=== PATIENT | female | born 1940 | race Caucasian/White ===

== ENCOUNTER 2017-01-02 00:45 | Inpatient (IN) | payer MEDICARE ==
[~2017-01-02] VITALS: Ht 149.9 cm; Wt 61.4 kg
[~2017-01-02 00:45] MED LIST: ASCO10002 PO; ASPI-482 PO; CALC-30 PO; CLOP75TA PO; CRESTOR20 MG PO; FAMO40TA4 PO; FENO134C PO; LORA10TA68 PO; METH500T5 PO; METO50TA2 PO; MULT-245 PO; NITR0.4T22 SL; NITR1PAT9 TD; OMEP40CA5 PO; [UNRECOGNIZED DRUG - CODE] DT
[2017-01-02] MEDS ORDERED: IV NORMAL SALINE 1000ML BAG 1,000 ML IV ONE (02:00)
[2017-01-02] MEDS ORDERED: ONDANSETRON PF 4 MG/2 ML VIAL. IV ONE (02:00)
[2017-01-02 02:06] LABS: BASO % 0 % (0-3); EOS % 0 % (0-3); HEMATOCRIT 37.8 % (36.0-47.0); HEMOGLOBIN 12.1 g/dL (12.0-15.5); LYMPH # 0.4 x10^3/uL (1.0-4.8); LYMPH % 3 % (24-48); MEAN CORPUSCULAR HEMOGLOBIN 27 pg (25-35); MEAN CORPUSCULAR HGB CONC 32 g/dL (31-37); MEAN CORPUSCULAR VOLUME 86 fL (79-100); MONO % 2 % (0-9); NEUT % 95 % (31-73); PLATELET COUNT 253 x10^3/uL (140-400); RED BLOOD COUNT 4.42 x10^6/uL (3.50-5.40); RED CELL DISTRIBUTION WIDTH 16.6 % (11.5-14.5); WHITE BLOOD COUNT 15.3 x10^3/uL (4.0-11.0)
[2017-01-02 02:21] LABS: BILIRUBIN,URINE NEGATIVE (NEG); GLUCOSE,URINE NEGATIVE (NEG); NITRITE,URINE NEGATIVE (NEG); PH,URINE 6.5; PROTEIN,URINE NEGATIVE (NEG-TRACE); UROBILINOGEN,URINE 0.2 mg/dL (0.2 mg/dL)
[2017-01-02 02:29] LABS: BACTERIA,URINE 0 /HPF (0-FEW); RBC,URINE OCC /HPF (0-2); WBC,URINE 0 /HPF (0-4)
[2017-01-02 02:30] LABS: SQUAMOUS EPITHELIAL CELL,UR OCC /LPF
[2017-01-02 02:32] LABS: CALCIUM 9.1 mg/dL (8.5-10.1); GFR 54.2; POTASSIUM 4.4 mmol/L (3.5-5.1)
[2017-01-02 02:38] LABS: ALBUMIN 3.7 g/dL (3.4-5.0); TOTAL BILIRUBIN 0.5 mg/dL (0.2-1.0); TOTAL PROTEIN 7.4 g/dL (6.4-8.2)
[2017-01-02 03:27] LABS: % BASOS 1 % (0-3); % EOS 1 % (0-5); PLT ESTIMATE ADEQUATE (ADEQUATE); TOXIC VACUOLATION SLIGHT
[2017-01-02] MEDS ORDERED: ACETAMINOPHEN 325 MG TABLET. PO ONE (03:30)
[2017-01-02] MEDS ORDERED: ONDANSETRON PF 4 MG/2 ML VIAL. IV PRN ×2 (04:45→14:15)
[2017-01-02] MEDS ORDERED: ACETAMINOPHEN 325 MG TABLET. PO PRN ×2 (04:45→14:15)
[2017-01-02 05:41] VITALS: BP 137/77
--- NOTE | 2017-01-02 05:47 | PHYS DOC ---
Past Medical History Past Medical History: CAD, GERD, Hypertension, Other Additional Past Medical Histor: raynauds Past Surgical History: Cholecystectomy, Coronary Bypass Surgery, Other Additional Past Surgical Histo: colonoscopy Alcohol Use: None Drug Use: None Adult General Chief Complaint Chief Complaint: TREMORS HPI HPI Patient is a 76 year old [f__sex] who presents with [] Review of Systems Review of Systems Constitutional: Denies fever or chills [] Eyes: Denies change in visual acuity, redness, or eye pain [] HENT: Denies nasal congestion or sore throat [] Respiratory: Denies cough or shortness of breath [] Cardiovascular: No additional information not addressed in HPI [] GI: Denies abdominal pain, nausea, vomiting, bloody stools or diarrhea [] : Denies dysuria or hematuria [] Musculoskeletal: Denies back pain or joint pain [] Integument: Denies rash or skin lesions [] Neurologic: Denies headache, focal weakness or sensory changes [] Endocrine: Denies polyuria or polydipsia [] Current Medications Current Medications Current Medications Medications (Trade) Dose Ordered Sig/Blake Start Time Stop Time Status Last Admin Dose Admin Acetaminophen (Tylenol) 650 mg 1X ONCE 01/02/17 03:30 01/02/17 03:31 DC 01/02/17 03:34 650 MG Ceftriaxone Sodium 50 ml @ 100 mls/hr 1X ONCE 01/02/17 03:30 01/02/17 03:59 DC 01/02/17 03:33 100 MLS/HR Ondansetron HCl (Zofran) 4 mg 1X ONCE 01/02/17 02:00 01/02/17 02:01 DC 01/02/17 02:11 4 MG Sodium Chloride 1,000 ml @ 1,000 mls/hr 1X ONCE 01/02/17 02:00 01/02/17 02:59 DC 01/02/17 02:11 1,000 MLS/HR Allergies Allergies Allergies Coded Allergies Type Severity Reaction Last Updated Verified Sulfa (Sulfonamide Antibiotics) Allergy Intermediate intolerance 03/27/15 Yes ciprofloxacin Allergy Intermediate rash 12/08/14 Yes naproxen Allergy Intermediate 12/08/14 Yes polyethylene glycol Allergy Intermediate 03/27/15 No propofol Allergy Intermediate 03/27/15 No propoxyphene Allergy Intermediate 12/08/14 Yes sodium Allergy Intermediate 03/27/15 No sodium chloride Allergy Intermediate 03/27/15 No Physical Exam Physical Exam Constitutional: Well developed, well nourished, no acute distress, non-toxic appearance. [] HENT: Normocephalic, atraumatic, bilateral external ears normal, oropharynx moist, no oral exudates, nose normal. [] Eyes: PERRLA, EOMI, conjunctiva normal, no discharge. [] Neck: Normal range of motion, no tenderness, supple, no stridor. [] Cardiovascular:Heart rate regular rhythm, no murmur [] Lungs & Thorax: Bilateral breath sounds clear to auscultation [] Abdomen: Bowel sounds normal, soft, no tenderness, no masses, no pulsatile masses. [] Skin: Warm, dry, no erythema, no rash. [] Back: No tenderness, no CVA tenderness. [] Extremities: No tenderness, no cyanosis, no clubbing, ROM intact, no edema. [] Neurologic: Alert and oriented X 3, normal motor function, normal sensory function, no focal deficits noted. [] Psychologic: Affect normal, judgement normal, mood normal. [] Current Patient Data Vital Signs Vital Signs Date Time Temp Pulse Resp B/P (MAP) Pulse Ox O2 Delivery O2 Flow Rate FiO2 01/02/17 04:00 82 120/58 (78) 94 Room Air 01/02/17 01:36 99.7 20 99.7 Lab Values Laboratory Tests Test 01/02/17 01:34 01/02/17 02:11 White Blood Count 15.3 x10^3/uL (4.0-11.0) H Red Blood Count 4.42 x10^6/uL (3.50-5.40) Hemoglobin 12.1 g/dL (12.0-15.5) Hematocrit 37.8 % (36.0-47.0) Mean Corpuscular Volume 86 fL (79-100) Mean Corpuscular Hemoglobin 27 pg (25-35) Mean Corpuscular Hemoglobin Concent 32 g/dL (31-37) Red Cell Distribution Width 16.6 % (11.5-14.5) H Platelet Count 253 x10^3/uL (140-400) Neutrophils (%) (Auto) 95 % (31-73) H Lymphocytes (%) (Auto) 3 % (24-48) L Monocytes (%) (Auto) 2 % (0-9) Eosinophils (%) (Auto) 0 % (0-3) Basophils (%) (Auto) 0 % (0-3) Neutrophils # (Auto) 14.5 x10^3uL (1.8-7.7) H Lymphocytes # (Auto) 0.4 x10^3/uL (1.0-4.8) L Monocytes # (Auto) 0.3 x10^3/uL (0.0-1.1) Eosinophils # (Auto) 0.0 x10^3/uL (0.0-0.7) Basophils # (Auto) 0.0 x10^3/uL (0.0-0.2) Segmented Neutrophils % 81 % (35-66) H Band Neutrophils % 11 % (0-9) H Lymphocytes % 3 % (24-48) L Monocytes % 3 % (0-10) Eosinophils % 1 % (0-5) Basophils % 1 % (0-3) Toxic Vacuolation Slight Platelet Estimate Adequate (ADEQUATE) Giant Platelets Occ Sodium Level 134 mmol/L (136-145) L Potassium Level 4.4 mmol/L (3.5-5.1) Chloride Level 100 mmol/L (98-107) Carbon Dioxide Level 23 mmol/L (21-32) Anion Gap 11 (6-14) Blood Urea Nitrogen 15 mg/dL (7-20) Creatinine 1.0 mg/dL (0.6-1.0) Estimated GFR (Cockcroft-Gault) 54.2 BUN/Creatinine Ratio 15 (6-20) Glucose Level 87 mg/dL (70-99) Lactic Acid Level 2.6 mmol/L (0.4-2.0) H Calcium Level 9.1 mg/dL (8.5-10.1) Total Bilirubin 0.5 mg/dL (0.2-1.0) Aspartate Amino Transferase (AST) 90 U/L (15-37) H Alanine Aminotransferase (ALT) 36 U/L (14-59) Alkaline Phosphatase 59 U/L (46-116) Total Protein 7.4 g/dL (6.4-8.2) Albumin 3.7 g/dL (3.4-5.0) Albumin/Globulin Ratio 1.0 (1.0-1.7) Urine Collection Type U cath Urine Color Yellow Urine Clarity Clear Urine pH 6.5 Urine Specific [place] 1.015 Urine Protein Negative mg/dL (NEG-TRACE) Urine Glucose (UA) Negative mg/dL (NEG) Urine Ketones (Stick) Negative mg/dL (NEG) Urine Blood Negative (NEG) Urine Nitrite Negative (NEG) Urine Bilirubin Negative (NEG) Urine Urobilinogen Dipstick 0.2 mg/dL (0.2 mg/dL) Urine Leukocyte Esterase Negative (NEG) Urine RBC Occ /HPF (0-2) Urine WBC 0 /HPF (0-4) Urine Squamous Epithelial Cells Occ /LPF Urine Bacteria 0 /HPF (0-FEW) Urine Hyaline Casts Occasional /HPF Urine Mucus Slight /LPF Laboratory Tests 01/02/17 01:34 Laboratory Tests 01/02/17 01:34 EKG EKG [] Radiology/Procedures Radiology/Procedures [] Course & Med Decision Making Course & Med Decision Making Pertinent Labs and Imaging studies reviewed. (See chart for details) [] Dragon Disclaimer Dragon Disclaimer This electronic medical record was generated, in whole or in part, using a voice recognition dictation system. Departure Departure Impression: Primary Impression: SIRS (systemic inflammatory response syndrome) Additional Impressions: Tremor Leukocytosis Disposition: ADMITTED INPATIENT Admitting Physician: Other (reusch) Condition: STABLE Referrals: CHAPIS DICK MD (PCP) Problem Qualifiers Additional Impressions: Leukocytosis Leukocytosis type: bandemia Qualified Codes: D72.825 - Bandemia SANGITA PHOENIX MD Jan 02, 2017 05:47
[2017-01-02] MEDS ORDERED: ALEN70TA3 PO (06:03)
[2017-01-02] MEDS ORDERED: CRESTOR20 MG PO (06:03)
--- NOTE | 2017-01-02 06:35 | ACF ---
Admit Criteria Forms Admit Criteria Forms Admit Criteria Forms SEPSIS and OTHER FEBRILE ILLNESS, W/O FOCAL INFECTION Clinical Indications for Admission to Inpatient Care ( Place 'X' for any and all applicable criteria): Admission is indicated for ANY ONE of the following (1)(2)(3)(4): [ ] I. Bacteremia [ ]II. Suspected or identified specific infection requiring hospitalization (eg, meningitis, endocarditis) [ ]III. Hemodynamic instability [ ]IV. Altered mental status [ ]V. Failure or unavailability of outpatient antimicrobial treatment [ ]. Hypoxemia [ ]VII. Seizures [ ]VIII. High-risk febrile neutropenia [ ]IX. Need for parenteral antibiotic in patient who is likely to abuse vascular access device (eg, injection drug user) [A](7) [ ]X. Temperature greater than 104.9 degrees F (40.5 degrees C) (oral) [X]XI. Inpatient admission required rather than observation care because of ANY ONE of the following: [X]1) Specific infection identified that is too severe for outpatient treatment or observation care trial [ ]2) Metabolic disorder (eg, hypoglycemia, hyperglycemia, metabolic acidosis) that is severe or persistent [ ]3) Temperature greater than 103.1 degrees F (39.5 degrees C) ( oral) that is not responsive to observation care treatment [ ]4) IV fluid to replace significant ongoing (eg, for over 24 hours) losses (> 3 L/m2 per day) [ ]5) Supplemental oxygen or respiratory treatments for over 24 hours that is performable only in acute inpatient setting [ ]6) Parenteral nutrition regimen need that must be implemented on inpatient basis [ ]7) Strict or protective (eg, laminar flow) isolation [ ]8) Other condition, treatment or monitoring requiring inpatient admission Extended stay beyond goal length of stay may be needed for(1)(3) [ ]a) Sepsis or septic shock(22) [ ]b) Positive blood cultures [ ]c) Insufficient oral intake [ ]d) High-risk febrile neutropenia(29)(30) [ ]e) Continued fever and clinical instability [ ]f) Clinically active comorbid illness (e.g,heart failure, renal failure , diabetes) The original [employer] content created by [email or web address] has been revised. The portions of the content which have been revised are identified through the use of italic text or in bold, and [facility] has neither reviewed nor approved the modified material. All other unmodified content is copyright [facility]. Please see references footnoted in the original [facility] edition 2016 ZOHAIB BATISTA Jan 02, 2017 06:35
[2017-01-02 07:00] VITALS: BP 99/38
--- NOTE | 2017-01-02 07:32 | RAD ---
EXAM: Chest one view. HISTORY: Leukocytosis. COMPARISON: 03/27/2015. FINDINGS: A frontal view of the chest is obtained. There are changes of coronary artery bypass grafting. Cholecystectomy clips are noted. There is mild atelectasis or scarring in the bases. There is no pneumothorax or pleural effusion. The heart is not enlarged. There are atherosclerotic calcifications of the aorta. IMPRESSION: 1. No confluent infiltrates.
[2017-01-02 10:30] VITALS: BP_SYST 104; BP_SYST 108; BP_SYST 98; BP_DIAS 24; BP_DIAS 28; BP_DIAS 36
[2017-01-02] MEDS ORDERED: NITROGLYCERIN SUBLINGUAL 0.4 MG BOTTLE OF 25. SL PRN (11:45)
[2017-01-02] MEDS ORDERED: FAMOTIDINE 20 MG TABLET. PO SCH (12:30)
[2017-01-02] MEDS: CETIRIZINE HCL 10 MG TABLET. PO SCH (12:30)
[2017-01-02] MEDS ORDERED: METOPROLOL TART IMMED RELEASE 50 MG TABLET. PO SCH (12:30)
[2017-01-02] MEDS: MULTIVITAMIN with MINERAL TABLET. PO SCH (13:30)
[2017-01-02] MEDS: PANTOPRAZOLE 40 MG TABLET.DR. PO SCH (13:30)
[2017-01-02] MEDS: ASCORBIC ACID 500 MG TABLET PO SCH (13:33)
[2017-01-02] MEDS: FENOFIBRATE,MICRONIZED 134 MG CAPSULE PO SCH (13:33)
--- NOTE | 2017-01-02 14:05 | PDOC1 ---
History and Physical Date of Admission Date of Admission 01/02/17 Identification/Chief Complaint Chief Complaint bl ext tremors Problems: Source Source: Patient History of Present Illness History of Present Illness 76yo F, comes for bl ext tremors. Pt has Raynauds syndrome with bl hands cold , white sometimes. She said she started to feel bl hands, feet mild tremors yesterday, better today. She worried about hyponatremia, then came to ER. Na 134. has chronic urinary frequency. UA clean so far denies fever, chills, sob, cough, N/V. Past Medical History Cardiovascular: CAD GI: GERD Renal/: No pertinent hx Endocrine: No pertinent hx Past Surgical History Past Surgical History: CABG Family History Family History: No Significant Social History Smoke: No ALCOHOL: none Drugs: None Current Problem List Problem List Problems Medical Problems: (1) Leukocytosis Status: Acute (2) SIRS (systemic inflammatory response syndrome) Status: Acute (3) Tremor Status: Acute Current Medications Current Medications Current Medications Medications (Trade) Dose Ordered Sig/Blake Start Time Stop Time Status Last Admin Dose Admin Acetaminophen (Tylenol) 650 mg PRN Q4HRS PRN 01/02/17 04:45 01/03/17 04:44 Ascorbic Acid (Vitamin C) 1,000 mg DAILY 01/02/17 12:30 01/02/17 13:33 1,000 MG Atorvastatin Calcium (Lipitor) 80 mg QHS 01/02/17 21:00 Calcium/Vitamin D (Oscal D 500mg/ 200uts) 1 tab BIDWMEALS 01/02/17 17:00 Ceftriaxone Sodium 50 ml @ 100 mls/hr 1X ONCE 01/02/17 03:30 01/02/17 03:59 DC 01/02/17 03:33 100 MLS/HR Cetirizine HCl (ZyrTEC) 10 mg DAILY 01/02/17 12:30 Famotidine (Pepcid) 20 mg QHS 01/02/17 21:00 Fenofibrate (Lofibra) 134 mg DAILY 01/02/17 12:30 01/02/17 13:33 134 MG Metoprolol Tartrate (Lopressor) 50 mg BID 01/02/17 12:30 Multivitamins (Thera M Plus) 1 tab DAILY 01/02/17 12:30 01/02/17 13:30 1 TAB Nitroglycerin (Nitrostat) 0.4 mg PRN Q5MIN PRN 01/02/17 11:45 Non-Formulary Medication 113 gm HS 01/02/17 21:00 UNV Ondansetron HCl (Zofran) 4 mg PRN Q8HRS PRN 01/02/17 04:45 01/03/17 04:44 Pantoprazole Sodium (Protonix) 40 mg DAILYAC 01/02/17 12:30 01/02/17 13:30 40 MG Sodium Chloride 1,000 ml @ 1,000 mls/hr 1X ONCE 01/02/17 02:00 01/02/17 02:59 DC 01/02/17 02:11 1,000 MLS/HR Allergies Allergies Allergies Coded Allergies Type Severity Reaction Last Updated Verified Sulfa (Sulfonamide Antibiotics) Allergy Intermediate intolerance 03/27/15 Yes ciprofloxacin Allergy Intermediate rash 12/08/14 Yes naproxen Allergy Intermediate 12/08/14 Yes polyethylene glycol Allergy Intermediate 03/27/15 No propofol Allergy Intermediate 03/27/15 No propoxyphene Allergy Intermediate 12/08/14 Yes sodium Allergy Intermediate 03/27/15 No sodium chloride Allergy Intermediate 03/27/15 No ROS Review of System CONSTITUTIONAL: No fever or chills EYES: No recent changes SKIN: No rash or itching CARDIOVASCULAR: No chest pain, syncope, palpitations, or edema RESPIRATORY: No SOB or cough GASTROINTESTINAL: No nausea, vomiting or abdominal pain NEUROLOGICAL: No headaches or weakness ENDOCRINE: No cold or heat intolerance GENITOURINARY: No urgency or frequency of urination MUSCULOSKELETAL: No back pain or joint pain LYMPHATICS: No enlarged lymph nodes PSYCHIATRIC: No anxiety or depression Physical Exam Physical Exam GEN.: No apparent distress. Alert and oriented. HEENT: Head is normocephalic, atraumatic NECK: Supple. LUNGS: Clear to auscultation. HEART: RRR, S1, S2 present. Peripheral pulses intact ABDOMEN: Soft, nontender. Positive bowel sounds. EXTREMITIES: Without any cyanosis. bl fingers very mild tremors NEUROLOGIC: Normal speech, normal tone PSYCHIATRIC: Normal affect, normal mood. SKIN: No ulcerations Vitals Vitals Vital Signs Date Time Temp Pulse Resp B/P (MAP) Pulse Ox O2 Delivery O2 Flow Rate FiO2 01/02/17 12:30 58 98/34 6/12/17 10:30 98.1 18 92 Room Air 98.1 Labs Labs Laboratory Tests Test 01/02/17 01:34 01/02/17 02:11 01/02/17 04:35 White Blood Count 15.3 x10^3/uL (4.0-11.0) Red Blood Count 4.42 x10^6/uL (3.50-5.40) Hemoglobin 12.1 g/dL (12.0-15.5) Hematocrit 37.8 % (36.0-47.0) Mean Corpuscular Volume 86 fL (79-100) Mean Corpuscular Hemoglobin 27 pg (25-35) Mean Corpuscular Hemoglobin Concent 32 g/dL (31-37) Red Cell Distribution Width 16.6 % (11.5-14.5) Platelet Count 253 x10^3/uL (140-400) Neutrophils (%) (Auto) 95 % (31-73) Lymphocytes (%) (Auto) 3 % (24-48) Monocytes (%) (Auto) 2 % (0-9) Eosinophils (%) (Auto) 0 % (0-3) Basophils (%) (Auto) 0 % (0-3) Neutrophils # (Auto) 14.5 x10^3uL (1.8-7.7) Lymphocytes # (Auto) 0.4 x10^3/uL (1.0-4.8) Monocytes # (Auto) 0.3 x10^3/uL (0.0-1.1) Eosinophils # (Auto) 0.0 x10^3/uL (0.0-0.7) Basophils # (Auto) 0.0 x10^3/uL (0.0-0.2) Segmented Neutrophils % 81 % (35-66) Band Neutrophils % 11 % (0-9) Lymphocytes % 3 % (24-48) Monocytes % 3 % (0-10) Eosinophils % 1 % (0-5) Basophils % 1 % (0-3) Toxic Vacuolation Slight Platelet Estimate Adequate (ADEQUATE) Giant Platelets Occ Sodium Level 134 mmol/L (136-145) Potassium Level 4.4 mmol/L (3.5-5.1) Chloride Level 100 mmol/L (98-107) Carbon Dioxide Level 23 mmol/L (21-32) Anion Gap 11 (6-14) Blood Urea Nitrogen 15 mg/dL (7-20) Creatinine 1.0 mg/dL (0.6-1.0) Estimated GFR (Cockcroft-Gault) 54.2 BUN/Creatinine Ratio 15 (6-20) Glucose Level 87 mg/dL (70-99) Lactic Acid Level 2.6 mmol/L (0.4-2.0) 1.8 mmol/L (0.4-2.0) Calcium Level 9.1 mg/dL (8.5-10.1) Total Bilirubin 0.5 mg/dL (0.2-1.0) Aspartate Amino Transf (AST/SGOT) 90 U/L (15-37) Alanine Aminotransferase (ALT/SGPT) 36 U/L (14-59) Alkaline Phosphatase 59 U/L (46-116) Total Protein 7.4 g/dL (6.4-8.2) Albumin 3.7 g/dL (3.4-5.0) Albumin/Globulin Ratio 1.0 (1.0-1.7) Urine Collection Type U cath Urine Color Yellow Urine Clarity Clear Urine pH 6.5 Urine Specific [place] 1.015 Urine Protein Negative mg/dL (NEG-TRACE) Urine Glucose (UA) Negative mg/dL (NEG) Urine Ketones (Stick) Negative mg/dL (NEG) Urine Blood Negative (NEG) Urine Nitrite Negative (NEG) Urine Bilirubin Negative (NEG) Urine Urobilinogen Dipstick 0.2 mg/dL (0.2 mg/dL) Urine Leukocyte Esterase Negative (NEG) Urine RBC Occ /HPF (0-2) Urine WBC 0 /HPF (0-4) Urine Squamous Epithelial Cells Occ /LPF Urine Bacteria 0 /HPF (0-FEW) Urine Hyaline Casts Occasional /HPF Urine Mucus Slight /LPF Laboratory Tests Test 01/02/17 01:34 01/02/17 02:11 01/02/17 04:35 White Blood Count 15.3 x10^3/uL (4.0-11.0) Red Blood Count 4.42 x10^6/uL (3.50-5.40) Hemoglobin 12.1 g/dL (12.0-15.5) Hematocrit 37.8 % (36.0-47.0) Mean Corpuscular Volume 86 fL (79-100) Mean Corpuscular Hemoglobin 27 pg (25-35) Mean Corpuscular Hemoglobin Concent 32 g/dL (31-37) Red Cell Distribution Width 16.6 % (11.5-14.5) Platelet Count 253 x10^3/uL (140-400) Neutrophils (%) (Auto) 95 % (31-73) Lymphocytes (%) (Auto) 3 % (24-48) Monocytes (%) (Auto) 2 % (0-9) Eosinophils (%) (Auto) 0 % (0-3) Basophils (%) (Auto) 0 % (0-3) Neutrophils # (Auto) 14.5 x10^3uL (1.8-7.7) Lymphocytes # (Auto) 0.4 x10^3/uL (1.0-4.8) Monocytes # (Auto) 0.3 x10^3/uL (0.0-1.1) Eosinophils # (Auto) 0.0 x10^3/uL (0.0-0.7) Basophils # (Auto) 0.0 x10^3/uL (0.0-0.2) Segmented Neutrophils % 81 % (35-66) Band Neutrophils % 11 % (0-9) Lymphocytes % 3 % (24-48) Monocytes % 3 % (0-10) Eosinophils % 1 % (0-5) Basophils % 1 % (0-3) Toxic Vacuolation Slight Platelet Estimate Adequate (ADEQUATE) Giant Platelets Occ Sodium Level 134 mmol/L (136-145) Potassium Level 4.4 mmol/L (3.5-5.1) Chloride Level 100 mmol/L (98-107) Carbon Dioxide Level 23 mmol/L (21-32) Anion Gap 11 (6-14) Blood Urea Nitrogen 15 mg/dL (7-20) Creatinine 1.0 mg/dL (0.6-1.0) Estimated GFR (Cockcroft-Gault) 54.2 BUN/Creatinine Ratio 15 (6-20) Glucose Level 87 mg/dL (70-99) Lactic Acid Level 2.6 mmol/L (0.4-2.0) 1.8 mmol/L (0.4-2.0) Calcium Level 9.1 mg/dL (8.5-10.1) Total Bilirubin 0.5 mg/dL (0.2-1.0) Aspartate Amino Transf (AST/SGOT) 90 U/L (15-37) Alanine Aminotransferase (ALT/SGPT) 36 U/L (14-59) Alkaline Phosphatase 59 U/L (46-116) Total Protein 7.4 g/dL (6.4-8.2) Albumin 3.7 g/dL (3.4-5.0) Albumin/Globulin Ratio 1.0 (1.0-1.7) Urine Collection Type U cath Urine Color Yellow Urine Clarity Clear Urine pH 6.5 Urine Specific [place] 1.015 Urine Protein Negative mg/dL (NEG-TRACE) Urine Glucose (UA) Negative mg/dL (NEG) Urine Ketones (Stick) Negative mg/dL (NEG) Urine Blood Negative (NEG) Urine Nitrite Negative (NEG) Urine Bilirubin Negative (NEG) Urine Urobilinogen Dipstick 0.2 mg/dL (0.2 mg/dL) Urine Leukocyte Esterase Negative (NEG) Urine RBC Occ /HPF (0-2) Urine WBC 0 /HPF (0-4) Urine Squamous Epithelial Cells Occ /LPF Urine Bacteria 0 /HPF (0-FEW) Urine Hyaline Casts Occasional /HPF Urine Mucus Slight /LPF VTE Prophylaxis Ordered VTE Prophylaxis Devices: No VTE Pharmacological Prophylaxi: Yes Assessment/Plan Assessment/Plan 1. bl ext tremors, 2/2 essential tremors vs. Raynauds syndrome 2. h/o CAD WITH BYpass sx 3. HTN 4. GERD plan; decrease metoprolol to 25mg bid given low side bp cont supportive care PTOT dvt ppx fu ucx, no abx for now TATY RIVERA MD Jan 02, 2017 14:05
[2017-01-02] MEDS ORDERED: hydrALAZINE 20 MG/ML VIAL. IVP PRN (14:15)
[2017-01-02] MEDS ORDERED: traMADol 50 MG TABLET PO PRN (14:15)
[2017-01-02] MEDS ORDERED: DOCUSATE SODIUM 100 MG CAPSULE. PO PRN (14:15)
[2017-01-02] MEDS ORDERED: MORPHINE SULFATE 2 MG/ML DISP.SYRIN. IV PRN (14:15)
[2017-01-02 15:00] VITALS: BP 106/41
[2017-01-02] MEDS: ENOXAPARIN 40 MG/0.4 ML SYRINGE. SQ SCH (17:03)
[2017-01-02] MEDS: CALCIUM CARB/VIT D3 500/200 TABLET. PO SCH (17:03)
[2017-01-02 19:00] VITALS: BP 100/49
[2017-01-02] MEDS: METOPROLOL TART IMMED RELEASE 25 MG TABLET. PO SCH (20:22)
[2017-01-02] MEDS: ATORVASTATIN CALCIUM 40 MG TABLET. PO SCH (20:28)
[2017-01-02] MEDS: FAMOTIDINE 20 MG TABLET. PO SCH (20:28)
[2017-01-02] MEDS ORDERED: SODIUM FLUORIDE DT SCH (21:00)
[2017-01-02 23:00] VITALS: BP 105/84
[2017-01-03 03:00] VITALS: BP 117/55
[2017-01-03 06:44] LABS: BASO % 1 % (0-3); EOS % 2 % (0-3); HEMATOCRIT 33.3 % (36.0-47.0); HEMOGLOBIN 10.9 g/dL (12.0-15.5); LYMPH # 0.8 x10^3/uL (1.0-4.8); LYMPH % 11 % (24-48); MEAN CORPUSCULAR HEMOGLOBIN 28 pg (25-35); MEAN CORPUSCULAR HGB CONC 33 g/dL (31-37); MEAN CORPUSCULAR VOLUME 86 fL (79-100); MONO % 9 % (0-9); NEUT % 77 % (31-73); PLATELET COUNT 189 x10^3/uL (140-400); RED BLOOD COUNT 3.86 x10^6/uL (3.50-5.40); RED CELL DISTRIBUTION WIDTH 16.9 % (11.5-14.5); WHITE BLOOD COUNT 7.2 x10^3/uL (4.0-11.0)
[2017-01-03 06:48] LABS: CALCIUM 9.1 mg/dL (8.5-10.1); CREATININE 0.8 mg/dL (0.6-1.0); GFR 70.1; POTASSIUM 4.3 mmol/L (3.5-5.1)
[2017-01-03 07:30] VITALS: BP 130/49
[2017-01-03] MEDS ORDERED: METHYLCELLULOSE 500 MG PO SCH (09:00)
[2017-01-03] MEDS ORDERED: NON FORMULARY ITEM (Rosuvastatin Calcium (Crestor) 1 TAB) PO SCH (09:00)
[2017-01-03] MEDS: PANTOPRAZOLE 40 MG TABLET.DR. PO SCH (09:34)
[2017-01-03] MEDS: FENOFIBRATE,MICRONIZED 134 MG CAPSULE PO SCH (09:34)
[2017-01-03] MEDS: CALCIUM CARB/VIT D3 500/200 TABLET. PO SCH ×2 (09:34→16:25)
[2017-01-03] MEDS: METOPROLOL TART IMMED RELEASE 25 MG TABLET. PO SCH ×2 (09:35→19:57)
[2017-01-03] MEDS: MULTIVITAMIN with MINERAL TABLET. PO SCH (09:35)
[2017-01-03] MEDS: ASCORBIC ACID 500 MG TABLET PO SCH (09:36)
[2017-01-03] MEDS: CETIRIZINE HCL 10 MG TABLET. PO SCH (09:36)
[2017-01-03] MEDS ORDERED: PSYL1PAC7 PO (09:42)
[2017-01-03 10:30] VITALS: BP 128/55
[2017-01-03] MEDS: ENOXAPARIN 40 MG/0.4 ML SYRINGE. SQ SCH (13:24)
[2017-01-03 14:30] VITALS: BP 141/54
--- NOTE | 2017-01-03 14:37 | PDOC ---
PROGRESS NOTES Chief Complaint Chief Complaint 1. bl ext tremors, 2/2 essential tremors vs. Raynauds syndrome 2. h/o CAD WITH BYpass sx 3. HTN 4. GERD plan; neuro consult add vitb12 po daily given low side vitb12 decrease metoprolol to 25mg bid given low side bp cont supportive care PTOT dvt ppx fu ucx, no abx for now check vitd, mag, stephany History of Present Illness History of Present Illness feels ok in the am, still bl ext mild tremors, however, later in the afternoon, feels not good T 100 as per nurse Vitals Vitals Vital Signs Date Time Temp Pulse Resp B/P (MAP) Pulse Ox O2 Delivery O2 Flow Rate FiO2 01/03/17 10:30 98.1 64 18 128/55 (79) 94 Room Air 98.1 Physical Exam General: Alert, Oriented X3, Cooperative Heart: Regular rate, Normal S1, Normal S2 Lungs: Clear Abdomen: Normal bowel sounds, Soft, No tenderness Extremities: No clubbing, No cyanosis Skin: No rashes Labs LABS Laboratory Tests Test 01/03/17 05:45 White Blood Count 7.2 x10^3/uL (4.0-11.0) Red Blood Count 3.86 x10^6/uL (3.50-5.40) Hemoglobin 10.9 g/dL (12.0-15.5) Hematocrit 33.3 % (36.0-47.0) Mean Corpuscular Volume 86 fL (79-100) Mean Corpuscular Hemoglobin 28 pg (25-35) Mean Corpuscular Hemoglobin Concent 33 g/dL (31-37) Red Cell Distribution Width 16.9 % (11.5-14.5) Platelet Count 189 x10^3/uL (140-400) Neutrophils (%) (Auto) 77 % (31-73) Lymphocytes (%) (Auto) 11 % (24-48) Monocytes (%) (Auto) 9 % (0-9) Eosinophils (%) (Auto) 2 % (0-3) Basophils (%) (Auto) 1 % (0-3) Neutrophils # (Auto) 5.6 x10^3uL (1.8-7.7) Lymphocytes # (Auto) 0.8 x10^3/uL (1.0-4.8) Monocytes # (Auto) 0.6 x10^3/uL (0.0-1.1) Eosinophils # (Auto) 0.2 x10^3/uL (0.0-0.7) Basophils # (Auto) 0.0 x10^3/uL (0.0-0.2) Sodium Level 137 mmol/L (136-145) Potassium Level 4.3 mmol/L (3.5-5.1) Chloride Level 104 mmol/L (98-107) Carbon Dioxide Level 24 mmol/L (21-32) Anion Gap 9 (6-14) Blood Urea Nitrogen 12 mg/dL (7-20) Creatinine 0.8 mg/dL (0.6-1.0) Estimated GFR (Cockcroft-Gault) 70.1 Glucose Level 96 mg/dL (70-99) Calcium Level 9.1 mg/dL (8.5-10.1) Vitamin B12 Level 363 pg/mL (247-911) Thyroid Stimulating Hormone (TSH) 3.349 uIU/mL (0.358-3.74) Review of Systems Review of Systems no N/V, chills, sob Assessment and Plan Assessmemt and Plan Problems Medical Problems: (1) Leukocytosis Status: Acute (2) SIRS (systemic inflammatory response syndrome) Status: Acute (3) Tremor Status: Acute Problems: Comment Review of Relevant I have reviewed the following items lucero (where applicable) has been applied. Labs Laboratory Tests Test 01/02/17 01:34 01/02/17 02:11 01/02/17 04:35 01/03/17 05:45 White Blood Count 15.3 x10^3/uL (4.0-11.0) 7.2 x10^3/uL (4.0-11.0) Red Blood Count 4.42 x10^6/uL (3.50-5.40) 3.86 x10^6/uL (3.50-5.40) Hemoglobin 12.1 g/dL (12.0-15.5) 10.9 g/dL (12.0-15.5) Hematocrit 37.8 % (36.0-47.0) 33.3 % (36.0-47.0) Mean Corpuscular Volume 86 fL (79-100) 86 fL (79-100) Mean Corpuscular Hemoglobin 27 pg (25-35) 28 pg (25-35) Mean Corpuscular Hemoglobin Concent 32 g/dL (31-37) 33 g/dL (31-37) Red Cell Distribution Width 16.6 % (11.5-14.5) 16.9 % (11.5-14.5) Platelet Count 253 x10^3/uL (140-400) 189 x10^3/uL (140-400) Neutrophils (%) (Auto) 95 % (31-73) 77 % (31-73) Lymphocytes (%) (Auto) 3 % (24-48) 11 % (24-48) Monocytes (%) (Auto) 2 % (0-9) 9 % (0-9) Eosinophils (%) (Auto) 0 % (0-3) 2 % (0-3) Basophils (%) (Auto) 0 % (0-3) 1 % (0-3) Neutrophils # (Auto) 14.5 x10^3uL (1.8-7.7) 5.6 x10^3uL (1.8-7.7) Lymphocytes # (Auto) 0.4 x10^3/uL (1.0-4.8) 0.8 x10^3/uL (1.0-4.8) Monocytes # (Auto) 0.3 x10^3/uL (0.0-1.1) 0.6 x10^3/uL (0.0-1.1) Eosinophils # (Auto) 0.0 x10^3/uL (0.0-0.7) 0.2 x10^3/uL (0.0-0.7) Basophils # (Auto) 0.0 x10^3/uL (0.0-0.2) 0.0 x10^3/uL (0.0-0.2) Segmented Neutrophils % 81 % (35-66) Band Neutrophils % 11 % (0-9) Lymphocytes % 3 % (24-48) Monocytes % 3 % (0-10) Eosinophils % 1 % (0-5) Basophils % 1 % (0-3) Toxic Vacuolation Slight Platelet Estimate Adequate (ADEQUATE) Giant Platelets Occ Sodium Level 134 mmol/L (136-145) 137 mmol/L (136-145) Potassium Level 4.4 mmol/L (3.5-5.1) 4.3 mmol/L (3.5-5.1) Chloride Level 100 mmol/L (98-107) 104 mmol/L (98-107) Carbon Dioxide Level 23 mmol/L (21-32) 24 mmol/L (21-32) Anion Gap 11 (6-14) 9 (6-14) Blood Urea Nitrogen 15 mg/dL (7-20) 12 mg/dL (7-20) Creatinine 1.0 mg/dL (0.6-1.0) 0.8 mg/dL (0.6-1.0) Estimated GFR (Cockcroft-Gault) 54.2 70.1 BUN/Creatinine Ratio 15 (6-20) Glucose Level 87 mg/dL (70-99) 96 mg/dL (70-99) Lactic Acid Level 2.6 mmol/L (0.4-2.0) 1.8 mmol/L (0.4-2.0) Calcium Level 9.1 mg/dL (8.5-10.1) 9.1 mg/dL (8.5-10.1) Total Bilirubin 0.5 mg/dL (0.2-1.0) Aspartate Amino Transf (AST/SGOT) 90 U/L (15-37) Alanine Aminotransferase (ALT/SGPT) 36 U/L (14-59) Alkaline Phosphatase 59 U/L (46-116) Total Protein 7.4 g/dL (6.4-8.2) Albumin 3.7 g/dL (3.4-5.0) Albumin/Globulin Ratio 1.0 (1.0-1.7) Urine Collection Type U cath Urine Color Yellow Urine Clarity Clear Urine pH 6.5 Urine Specific Irwin 1.015 Urine Protein Negative mg/dL (NEG-TRACE) Urine Glucose (UA) Negative mg/dL (NEG) Urine Ketones (Stick) Negative mg/dL (NEG) Urine Blood Negative (NEG) Urine Nitrite Negative (NEG) Urine Bilirubin Negative (NEG) Urine Urobilinogen Dipstick 0.2 mg/dL (0.2 mg/dL) Urine Leukocyte Esterase Negative (NEG) Urine RBC Occ /HPF (0-2) Urine WBC 0 /HPF (0-4) Urine Squamous Epithelial Cells Occ /LPF Urine Bacteria 0 /HPF (0-FEW) Urine Hyaline Casts Occasional /HPF Urine Mucus Slight /LPF Vitamin B12 Level 363 pg/mL (247-911) Thyroid Stimulating Hormone (TSH) 3.349 uIU/mL (0.358-3.74) Laboratory Tests Test 01/03/17 05:45 White Blood Count 7.2 x10^3/uL (4.0-11.0) Red Blood Count 3.86 x10^6/uL (3.50-5.40) Hemoglobin 10.9 g/dL (12.0-15.5) Hematocrit 33.3 % (36.0-47.0) Mean Corpuscular Volume 86 fL (79-100) Mean Corpuscular Hemoglobin 28 pg (25-35) Mean Corpuscular Hemoglobin Concent 33 g/dL (31-37) Red Cell Distribution Width 16.9 % (11.5-14.5) Platelet Count 189 x10^3/uL (140-400) Neutrophils (%) (Auto) 77 % (31-73) Lymphocytes (%) (Auto) 11 % (24-48) Monocytes (%) (Auto) 9 % (0-9) Eosinophils (%) (Auto) 2 % (0-3) Basophils (%) (Auto) 1 % (0-3) Neutrophils # (Auto) 5.6 x10^3uL (1.8-7.7) Lymphocytes # (Auto) 0.8 x10^3/uL (1.0-4.8) Monocytes # (Auto) 0.6 x10^3/uL (0.0-1.1) Eosinophils # (Auto) 0.2 x10^3/uL (0.0-0.7) Basophils # (Auto) 0.0 x10^3/uL (0.0-0.2) Sodium Level 137 mmol/L (136-145) Potassium Level 4.3 mmol/L (3.5-5.1) Chloride Level 104 mmol/L (98-107) Carbon Dioxide Level 24 mmol/L (21-32) Anion Gap 9 (6-14) Blood Urea Nitrogen 12 mg/dL (7-20) Creatinine 0.8 mg/dL (0.6-1.0) Estimated GFR (Cockcroft-Gault) 70.1 Glucose Level 96 mg/dL (70-99) Calcium Level 9.1 mg/dL (8.5-10.1) Vitamin B12 Level 363 pg/mL (247-911) Thyroid Stimulating Hormone (TSH) 3.349 uIU/mL (0.358-3.74) Microbiology 01/02/17 Blood Culture - Preliminary, Resulted NO GROWTH AFTER 1 DAY Medications Current Medications Sodium Chloride 1,000 ml @ 1,000 mls/hr 1X ONCE IV Last administered on 02:11; Start 01/02/17 at 02:00; Stop 01/02/17 at 02:59; Status DC Ondansetron HCl (Zofran) 4 mg 1X ONCE IV Last administered on 01/02/17 02:11 ; Start 01/02/17 at 02:00; Stop 01/02/17 at 02:01; Status DC Acetaminophen (Tylenol) 650 mg 1X ONCE PO Last administered on 01/02/17 03:34 ; Start 01/02/17 at 03:30; Stop 01/02/17 at 03:31; Status DC Ceftriaxone Sodium 50 ml @ 100 mls/hr 1X ONCE IV Last administered on 03:33; Start 01/02/17 at 03:30; Stop 01/02/17 at 03:59; Status DC Ondansetron HCl (Zofran) 4 mg PRN Q8HRS PRN IV NAUSEA/VOMITING; Start 01/02/17 at 04:45; Stop 01/02/17 at 14:10; Status DC Acetaminophen (Tylenol) 650 mg PRN Q4HRS PRN PO FEVER; Start 01/02/17 at 04:45 ; Stop 01/02/17 at 14:09; Status DC Fenofibrate (Lofibra) 134 mg DAILY PO Last administered on 01/03/17 09:34; Start 01/02/17 at 12:30 Metoprolol Tartrate (Lopressor) 50 mg BID PO ; Start 01/02/17 at 12:30; Stop 07/09 at 14:02; Status DC Nitroglycerin (Nitrostat) 0.4 mg PRN Q5MIN PRN SL CHEST PAIN; Start 01/02/17 at 11:45 Ascorbic Acid (Vitamin C) 1,000 mg DAILY PO Last administered on 01/03/17 09: 36; Start 01/02/17 at 12:30 Calcium/Vitamin D (Oscal D 500mg/ 200uts) 1 tab BIDWMEALS PO Last administered on 01/03/17 09:34; Start 01/02/17 at 17:00 Famotidine (Pepcid) 20 mg DAILY PO ; Start 01/02/17 at 12:30; Stop 01/02/17 at 13:58; Status DC Cetirizine HCl (ZyrTEC) 10 mg DAILY PO ; Start 01/02/17 at 12:30 Non-Formulary Medication 500 mg DAILY PO ; Start 01/03/17 at 09:00; Status UNV Multivitamins (Thera M Plus) 1 tab DAILY PO Last administered on 01/03/17 09: 35; Start 01/02/17 at 12:30 Pantoprazole Sodium (Protonix) 40 mg DAILYAC PO Last administered on 01/03/17 09:34; Start 01/02/17 at 12:30 Non-Formulary Medication 1 tab DAILY PO ; Start 01/03/17 at 09:00; Status UNV Atorvastatin Calcium (Lipitor) 80 mg QHS PO Last administered on 01/02/17 20: 28; Start 01/02/17 at 21:00 Non-Formulary Medication 113 gm HS DT ; Start 01/02/17 at 21:00; Status UNV Famotidine (Pepcid) 20 mg QHS PO Last administered on 01/02/17 20:28; Start at 21:00 Metoprolol Tartrate (Lopressor) 25 mg BID PO Last administered on 01/03/17 09: 35; Start 01/02/17 at 21:00 Acetaminophen (Tylenol) 650 mg PRN Q6HRS PRN PO FEVER; Start 01/02/17 at 14:15 Ondansetron HCl (Zofran) 4 mg PRN Q6HRS PRN IV NAUSEA/VOMITING; Start 01/02/17 at 14:15 Morphine Sulfate 2 mg PRN Q2HR PRN IV PAIN; Start 01/02/17 at 14:15 Tramadol HCl (Ultram) 50 mg PRN Q6HRS PRN PO PAIN; Start 01/02/17 at 14:15 Hydralazine HCl (Apresoline) 10 mg PRN Q4HRS PRN IVP ELEVATED BP, SEE COMMENTS ; Start 01/02/17 at 14:15 Docusate Sodium (Colace) 100 mg PRN DAILY PRN PO CONSTIPATION Last administered on 01/03/17 09:53; Start 01/02/17 at 14:15 Enoxaparin Sodium (Lovenox 40mg Syringe) 40 mg Q24H SQ Last administered on 13:24; Start 01/02/17 at 14:30 Active Scripts Active Reported Metamucil Packet (Psyllium Seed (With Sugar)) 1 Each Packet 1 Each PO BID Fosamax (Alendronate Sodium) 70 Mg Tablet 1 Tab PO WEEKLY Crestor (Rosuvastatin Calcium) 20 Mg Tablet 1 Tab PO DAILY NITROGLYCERIN SubLingual (Nitroglycerin) 0.4 Mg Tab.subl 0.4 Mg SL PRN Q5MIN PRN NITRO-DUR 0.4mg/hr (Nitroglycerin) 1 Each Patch.td24 1 Each TD PRN DAILY PRN Calcium 500 + Vit D 400 Tablet (Calcium Carbonate/Vitamin D3) 1 Each Tablet 1 Each PO BID Multi Vitamin Daily (Multivitamin) 1 Each Tablet 1 Each PO DAILY Vitamin C (Ascorbic Acid) 1,000 Mg Tablet 1,000 Mg PO DAILY Citrucel (Methylcellulose) 500 Mg Tablet 500 Mg PO DAILY Clinpro 5000 (Sodium Fluoride) 113 Gm Paste..g. 113 Gm DT HS Claritin (Loratadine) 10 Mg Tablet 10 Mg PO DAILY Famotidine 40 Mg Tablet 40 Mg PO DAILY Omeprazole 40 Mg Capsule.dr 40 Mg PO BID Aspir 81 (Aspirin) 81 Mg Tablet.dr 162 Mg PO DAILY Fenofibrate (Fenofibrate,Micronized) 134 Mg Capsule 134 Mg PO DAILY Metoprolol Tartrate 50 Mg Tablet 50 Mg PO BID Crestor (Rosuvastatin Calcium) 20 Mg Tablet 20 Mg PO HS Clopidogrel (Clopidogrel Bisulfate) 75 Mg Tablet 75 Mg PO DAILY Vitals/I & O Vital Sign - Last 24 Hours 01/02/17 01/02/17 01/02/17 01/02/17 15:00 19:00 20:00 20:22 Temp 97.8 97.8 97.8 97.8 Pulse 58 68 68 Resp 18 19 B/P (MAP) 106/41 (62) 100/49 (66) 100/49 Pulse Ox 98 95 O2 Delivery Room Air Room Air Room Air 01/02/17 01/03/17 01/03/17 01/03/17 23:00 03:00 07:30 08:00 Temp 97.7 97.8 97.9 97.7 97.8 97.9 Pulse 59 55 64 Resp 19 19 18 B/P (MAP) 105/84 (91) 117/55 (75) 130/49 (76) Pulse Ox 95 95 94 O2 Delivery Room Air Room Air Room Air Room Air 01/03/17 01/03/17 09:35 10:30 Temp 98.1 98.1 Pulse 64 64 Resp 18 B/P (MAP) 130/49 128/55 (79) Pulse Ox 94 O2 Delivery Room Air Intake and Output 01/02/17 01/02/17 01/03/17 15:00 23:00 07:00 Intake Total 700 ml 120 ml Balance 700 ml 120 ml TATY RIVERA MD Jan 03, 2017 14:37
--- NOTE | 2017-01-03 16:34 | PDOC2 ---
NEUROLOGY CONSULT Date of Admission Date of Admission DATE: 01/03/17 TIME: 16:23 Reason for Consult Reason for Consult: IMPRESSION: Abnormal movements in hands. Chronic essential tremors. PD not likely. Leukocytosis. Raynaud syndrome. CAD, s/p CABG Other medical diseases. RECOMMENDATIONS/PLAN: Beta-amanda daily. Lab: see orders. EEG Treat medical diseases. Discussed with her at bedside. HISTORY OF THE PRESENT ILLNESS: 76-y-old female patient with above medical diseases has been having chronic tremors or abnormal movements for about 6 months. She stated she had more tremors when she got cold especially in her hands since she had Raynaud syndrome. She noted tremors when she used hand for eating, drinking and writing. No tremors during sleeping. PAST MEDICAL HISTORY: Please see above. PAST SURGERY HISTORY: S/P CABG ALLERGY: Reviewed. MEDICATIONS: Refer to [facility] FAMILY HISTORY: Non contributory. No tremors. SOCIAL HISTORY: Denies smoking, drinking, and illicit drug use. REVIEW OF SYSTEMS: Constitutional: No malnutrition, weight loss, cachexia. Head: No traumatic brain or head injury. Skin: No edema, or rash. Ear: No infection. Eyes: No vision loss or color blindness. Nose: No bleeding or purulent discharges. Hearing: Hearing decrease. Neck: No injury. Breast: No history of cancer, masses,or discharges. Cardiac: CAD, s/p CABG. Pulmonary: No COPD. GI: No GI ulcer, GI bleeding. Urinary/genital: UTI. Endocrinologic: No cousin face, craniofacial dysmorphism, polydactyly. Skeletomuscular: No muscular atrophy, deformity. Neurological: see HP. Psychiatric: Denies drug use/abuse. Otherwise, not [id number] review of systems. PHYSICAL EXAMINATION: General appearance is in no acute distress. HEENT: Normocephalic and nontraumatic. Eyes, nose, ears, and throat are unremarkable. Neck is supple. No lymphadenopathy. No crepitus. Cardiovascular: S1, S2, regular rate and rhythm. Pulmonary: Clear to auscultation bilaterally. Abdomen: Bowel sounds are positive. Extremities: No rash, lesions, or edema. No restriction of range of motion NEUROLOGICAL EXAMINATION: Awake. Oriented to time, place and person. PERRL. EOMI. CN: no focal findings. Muscle tone: within normal. Muscle strength: 5- DTR: 2 Plantar reflex: Flexor response bilaterally Gait: not examined in bed. Sensory exam: no abnormal findings. No cerebellar signs elicited. F-T-N test fine. Current Medications Current Medications Current Medications Sodium Chloride 1,000 ml @ 1,000 mls/hr 1X ONCE IV Last administered on 02:11; Start 01/02/17 at 02:00; Stop 01/02/17 at 02:59; Status DC Ondansetron HCl (Zofran) 4 mg 1X ONCE IV Last administered on 01/02/17 02:11 ; Start 01/02/17 at 02:00; Stop 01/02/17 at 02:01; Status DC Acetaminophen (Tylenol) 650 mg 1X ONCE PO Last administered on 01/02/17 03:34 ; Start 01/02/17 at 03:30; Stop 01/02/17 at 03:31; Status DC Ceftriaxone Sodium 50 ml @ 100 mls/hr 1X ONCE IV Last administered on 03:33; Start 01/02/17 at 03:30; Stop 01/02/17 at 03:59; Status DC Ondansetron HCl (Zofran) 4 mg PRN Q8HRS PRN IV NAUSEA/VOMITING; Start 01/02/17 at 04:45; Stop 01/02/17 at 14:10; Status DC Acetaminophen (Tylenol) 650 mg PRN Q4HRS PRN PO FEVER; Start 01/02/17 at 04:45 ; Stop 01/02/17 at 14:09; Status DC Fenofibrate (Lofibra) 134 mg DAILY PO Last administered on 01/03/17 09:34; Start 01/02/17 at 12:30 Metoprolol Tartrate (Lopressor) 50 mg BID PO ; Start 01/02/17 at 12:30; Stop 07/09 at 14:02; Status DC Nitroglycerin (Nitrostat) 0.4 mg PRN Q5MIN PRN SL CHEST PAIN; Start 01/02/17 at 11:45 Ascorbic Acid (Vitamin C) 1,000 mg DAILY PO Last administered on 01/03/17 09: 36; Start 01/02/17 at 12:30 Calcium/Vitamin D (Oscal D 500mg/ 200uts) 1 tab BIDWMEALS PO Last administered on 01/03/17 09:34; Start 01/02/17 at 17:00 Famotidine (Pepcid) 20 mg DAILY PO ; Start 01/02/17 at 12:30; Stop 01/02/17 at 13:58; Status DC Cetirizine HCl (ZyrTEC) 10 mg DAILY PO ; Start 01/02/17 at 12:30 Non-Formulary Medication 500 mg DAILY PO ; Start 01/03/17 at 09:00; Status UNV Multivitamins (Thera M Plus) 1 tab DAILY PO Last administered on 01/03/17 09: 35; Start 01/02/17 at 12:30 Pantoprazole Sodium (Protonix) 40 mg DAILYAC PO Last administered on 01/03/17 09:34; Start 01/02/17 at 12:30 Non-Formulary Medication 1 tab DAILY PO ; Start 01/03/17 at 09:00; Status UNV Atorvastatin Calcium (Lipitor) 80 mg QHS PO Last administered on 01/02/17 20: 28; Start 01/02/17 at 21:00 Non-Formulary Medication 113 gm HS DT ; Start 01/02/17 at 21:00; Status UNV Famotidine (Pepcid) 20 mg QHS PO Last administered on 01/02/17 20:28; Start at 21:00 Metoprolol Tartrate (Lopressor) 25 mg BID PO Last administered on 01/03/17 09: 35; Start 01/02/17 at 21:00 Acetaminophen (Tylenol) 650 mg PRN Q6HRS PRN PO FEVER; Start 01/02/17 at 14:15 Ondansetron HCl (Zofran) 4 mg PRN Q6HRS PRN IV NAUSEA/VOMITING; Start 01/02/17 at 14:15 Morphine Sulfate 2 mg PRN Q2HR PRN IV PAIN; Start 01/02/17 at 14:15 Tramadol HCl (Ultram) 50 mg PRN Q6HRS PRN PO PAIN; Start 01/02/17 at 14:15 Hydralazine HCl (Apresoline) 10 mg PRN Q4HRS PRN IVP ELEVATED BP, SEE COMMENTS ; Start 01/02/17 at 14:15 Docusate Sodium (Colace) 100 mg PRN DAILY PRN PO CONSTIPATION Last administered on 01/03/17 09:53; Start 01/02/17 at 14:15 Enoxaparin Sodium (Lovenox 40mg Syringe) 40 mg Q24H SQ Last administered on 13:24; Start 01/02/17 at 14:30 Cyanocobalamin (Vitamin B-12) 1,000 mcg DAILY PO ; Start 01/04/17 at 09:00 Psyllium Hydrophilic Mucilloid (Metamucil Fiber Packet) 1 pkt BID PO ; Start at 09:00 Active Scripts Active Reported Metamucil Packet (Psyllium Seed (With Sugar)) 1 Each Packet 1 Each PO BID Fosamax (Alendronate Sodium) 70 Mg Tablet 1 Tab PO WEEKLY Crestor (Rosuvastatin Calcium) 20 Mg Tablet 1 Tab PO DAILY NITROGLYCERIN SubLingual (Nitroglycerin) 0.4 Mg Tab.subl 0.4 Mg SL PRN Q5MIN PRN NITRO-DUR 0.4mg/hr (Nitroglycerin) 1 Each Patch.td24 1 Each TD PRN DAILY PRN Calcium 500 + Vit D 400 Tablet (Calcium Carbonate/Vitamin D3) 1 Each Tablet 1 Each PO BID Multi Vitamin Daily (Multivitamin) 1 Each Tablet 1 Each PO DAILY Vitamin C (Ascorbic Acid) 1,000 Mg Tablet 1,000 Mg PO DAILY Citrucel (Methylcellulose) 500 Mg Tablet 500 Mg PO DAILY Clinpro 5000 (Sodium Fluoride) 113 Gm Paste..g. 113 Gm DT HS Claritin (Loratadine) 10 Mg Tablet 10 Mg PO DAILY Famotidine 40 Mg Tablet 40 Mg PO DAILY Omeprazole 40 Mg Capsule.dr 40 Mg PO BID Aspir 81 (Aspirin) 81 Mg Tablet.dr 162 Mg PO DAILY Fenofibrate (Fenofibrate,Micronized) 134 Mg Capsule 134 Mg PO DAILY Metoprolol Tartrate 50 Mg Tablet 50 Mg PO BID Crestor (Rosuvastatin Calcium) 20 Mg Tablet 20 Mg PO HS Clopidogrel (Clopidogrel Bisulfate) 75 Mg Tablet 75 Mg PO DAILY Allergies Allergies: Coded Allergies: Sulfa (Sulfonamide Antibiotics) (Verified Allergy, Intermediate, intolerance, 03/27/15) ciprofloxacin (Verified Allergy, Intermediate, rash, 12/08/14) naproxen (Verified Allergy, Intermediate, 12/08/14) polyethylene glycol (Verified Allergy, Intermediate, 01/03/17) propofol (Verified Allergy, Intermediate, 01/03/17) propoxyphene (Verified Allergy, Intermediate, 12/08/14) Vitals VITALS Vital Signs Date Time Temp Pulse Resp B/P (MAP) Pulse Ox O2 Delivery O2 Flow Rate FiO2 01/03/17 14:30 100.0 72 18 141/54 (83) 93 Room Air 100.0 Labs Labs Laboratory Tests Test 01/02/17 01:34 01/02/17 02:11 01/02/17 04:35 01/03/17 05:45 White Blood Count 15.3 x10^3/uL (4.0-11.0) 7.2 x10^3/uL (4.0-11.0) Red Blood Count 4.42 x10^6/uL (3.50-5.40) 3.86 x10^6/uL (3.50-5.40) Hemoglobin 12.1 g/dL (12.0-15.5) 10.9 g/dL (12.0-15.5) Hematocrit 37.8 % (36.0-47.0) 33.3 % (36.0-47.0) Mean Corpuscular Volume 86 fL (79-100) 86 fL (79-100) Mean Corpuscular Hemoglobin 27 pg (25-35) 28 pg (25-35) Mean Corpuscular Hemoglobin Concent 32 g/dL (31-37) 33 g/dL (31-37) Red Cell Distribution Width 16.6 % (11.5-14.5) 16.9 % (11.5-14.5) Platelet Count 253 x10^3/uL (140-400) 189 x10^3/uL (140-400) Neutrophils (%) (Auto) 95 % (31-73) 77 % (31-73) Lymphocytes (%) (Auto) 3 % (24-48) 11 % (24-48) Monocytes (%) (Auto) 2 % (0-9) 9 % (0-9) Eosinophils (%) (Auto) 0 % (0-3) 2 % (0-3) Basophils (%) (Auto) 0 % (0-3) 1 % (0-3) Neutrophils # (Auto) 14.5 x10^3uL (1.8-7.7) 5.6 x10^3uL (1.8-7.7) Lymphocytes # (Auto) 0.4 x10^3/uL (1.0-4.8) 0.8 x10^3/uL (1.0-4.8) Monocytes # (Auto) 0.3 x10^3/uL (0.0-1.1) 0.6 x10^3/uL (0.0-1.1) Eosinophils # (Auto) 0.0 x10^3/uL (0.0-0.7) 0.2 x10^3/uL (0.0-0.7) Basophils # (Auto) 0.0 x10^3/uL (0.0-0.2) 0.0 x10^3/uL (0.0-0.2) Segmented Neutrophils % 81 % (35-66) Band Neutrophils % 11 % (0-9) Lymphocytes % 3 % (24-48) Monocytes % 3 % (0-10) Eosinophils % 1 % (0-5) Basophils % 1 % (0-3) Toxic Vacuolation Slight Platelet Estimate Adequate (ADEQUATE) Giant Platelets Occ Sodium Level 134 mmol/L (136-145) 137 mmol/L (136-145) Potassium Level 4.4 mmol/L (3.5-5.1) 4.3 mmol/L (3.5-5.1) Chloride Level 100 mmol/L (98-107) 104 mmol/L (98-107) Carbon Dioxide Level 23 mmol/L (21-32) 24 mmol/L (21-32) Anion Gap 11 (6-14) 9 (6-14) Blood Urea Nitrogen 15 mg/dL (7-20) 12 mg/dL (7-20) Creatinine 1.0 mg/dL (0.6-1.0) 0.8 mg/dL (0.6-1.0) Estimated GFR (Cockcroft-Gault) 54.2 70.1 BUN/Creatinine Ratio 15 (6-20) Glucose Level 87 mg/dL (70-99) 96 mg/dL (70-99) Lactic Acid Level 2.6 mmol/L (0.4-2.0) 1.8 mmol/L (0.4-2.0) Calcium Level 9.1 mg/dL (8.5-10.1) 9.1 mg/dL (8.5-10.1) Total Bilirubin 0.5 mg/dL (0.2-1.0) Aspartate Amino Transf (AST/SGOT) 90 U/L (15-37) Alanine Aminotransferase (ALT/SGPT) 36 U/L (14-59) Alkaline Phosphatase 59 U/L (46-116) Total Protein 7.4 g/dL (6.4-8.2) Albumin 3.7 g/dL (3.4-5.0) Albumin/Globulin Ratio 1.0 (1.0-1.7) Urine Collection Type U cath Urine Color Yellow Urine Clarity Clear Urine pH 6.5 Urine Specific [place] 1.015 Urine Protein Negative mg/dL (NEG-TRACE) Urine Glucose (UA) Negative mg/dL (NEG) Urine Ketones (Stick) Negative mg/dL (NEG) Urine Blood Negative (NEG) Urine Nitrite Negative (NEG) Urine Bilirubin Negative (NEG) Urine Urobilinogen Dipstick 0.2 mg/dL (0.2 mg/dL) Urine Leukocyte Esterase Negative (NEG) Urine RBC Occ /HPF (0-2) Urine WBC 0 /HPF (0-4) Urine Squamous Epithelial Cells Occ /LPF Urine Bacteria 0 /HPF (0-FEW) Urine Hyaline Casts Occasional /HPF Urine Mucus Slight /LPF Vitamin B12 Level 363 pg/mL (247-911) Thyroid Stimulating Hormone (TSH) 3.349 uIU/mL (0.358-3.74) Laboratory Tests Test 01/03/17 05:45 White Blood Count 7.2 x10^3/uL (4.0-11.0) Red Blood Count 3.86 x10^6/uL (3.50-5.40) Hemoglobin 10.9 g/dL (12.0-15.5) Hematocrit 33.3 % (36.0-47.0) Mean Corpuscular Volume 86 fL (79-100) Mean Corpuscular Hemoglobin 28 pg (25-35) Mean Corpuscular Hemoglobin Concent 33 g/dL (31-37) Red Cell Distribution Width 16.9 % (11.5-14.5) Platelet Count 189 x10^3/uL (140-400) Neutrophils (%) (Auto) 77 % (31-73) Lymphocytes (%) (Auto) 11 % (24-48) Monocytes (%) (Auto) 9 % (0-9) Eosinophils (%) (Auto) 2 % (0-3) Basophils (%) (Auto) 1 % (0-3) Neutrophils # (Auto) 5.6 x10^3uL (1.8-7.7) Lymphocytes # (Auto) 0.8 x10^3/uL (1.0-4.8) Monocytes # (Auto) 0.6 x10^3/uL (0.0-1.1) Eosinophils # (Auto) 0.2 x10^3/uL (0.0-0.7) Basophils # (Auto) 0.0 x10^3/uL (0.0-0.2) Sodium Level 137 mmol/L (136-145) Potassium Level 4.3 mmol/L (3.5-5.1) Chloride Level 104 mmol/L (98-107) Carbon Dioxide Level 24 mmol/L (21-32) Anion Gap 9 (6-14) Blood Urea Nitrogen 12 mg/dL (7-20) Creatinine 0.8 mg/dL (0.6-1.0) Estimated GFR (Cockcroft-Gault) 70.1 Glucose Level 96 mg/dL (70-99) Calcium Level 9.1 mg/dL (8.5-10.1) Vitamin B12 Level 363 pg/mL (247-911) Thyroid Stimulating Hormone (TSH) 3.349 uIU/mL (0.358-3.74) AZEEM GONZALEZ MD Jan 03, 2017 16:34
[2017-01-03 19:00] VITALS: BP 98/47
[2017-01-03] MEDS ORDERED: MAG HYDROX/ALUMINUM HYD/SIMETH 30 ML ORAL.SUSP PO PRN (19:45)
[2017-01-03] MEDS: FAMOTIDINE 20 MG TABLET. PO SCH (19:53)
[2017-01-03] MEDS: ATORVASTATIN CALCIUM 40 MG TABLET. PO SCH (19:53)
[2017-01-03 22:37] VITALS: BP 143/53
[2017-01-04 02:57] VITALS: BP 127/46
[2017-01-04 04:05] LABS: BASO % 1 % (0-3); EOS % 1 % (0-3); HEMATOCRIT 33.5 % (36.0-47.0); HEMOGLOBIN 11.3 g/dL (12.0-15.5); LYMPH # 0.4 x10^3/uL (1.0-4.8); LYMPH % 5 % (24-48); MEAN CORPUSCULAR HEMOGLOBIN 28 pg (25-35); MEAN CORPUSCULAR HGB CONC 34 g/dL (31-37); MEAN CORPUSCULAR VOLUME 84 fL (79-100); MONO % 9 % (0-9); NEUT % 84 % (31-73); PLATELET COUNT 189 x10^3/uL (140-400); RED CELL DISTRIBUTION WIDTH 16.6 % (11.5-14.5); WHITE BLOOD COUNT 7.4 x10^3/uL (4.0-11.0)
[2017-01-04 04:35] LABS: CALCIUM 9.2 mg/dL (8.5-10.1); CREATININE 0.9 mg/dL (0.6-1.0); GFR 61.2; MAGNESIUM 1.9 mg/dL (1.8-2.4); PHOSPHORUS 2.5 mg/dL (2.6-4.7); POTASSIUM 3.9 mmol/L (3.5-5.1)
[2017-01-04 07:00] VITALS: BP 129/52
[2017-01-04] MEDS: FENOFIBRATE,MICRONIZED 134 MG CAPSULE PO SCH (10:02)
[2017-01-04] MEDS: CALCIUM CARB/VIT D3 500/200 TABLET. PO SCH ×2 (10:02→16:17)
[2017-01-04] MEDS: PSYLLIUM HUSK (SUGAR FREE) 1 PKT PACKET PO SCH ×2 (10:03→20:43)
[2017-01-04] MEDS: METOPROLOL TART IMMED RELEASE 25 MG TABLET. PO SCH ×2 (10:03→20:43)
[2017-01-04] MEDS: MULTIVITAMIN with MINERAL TABLET. PO SCH (10:03)
[2017-01-04] MEDS: CYANOCOBALAMIN (VITAMIN B-12) 1,000 MCG TABLET. PO SCH (10:03)
[2017-01-04] MEDS: ASCORBIC ACID 500 MG TABLET PO SCH (10:04)
[2017-01-04] MEDS: CETIRIZINE HCL 10 MG TABLET. PO SCH (10:04)
[2017-01-04] MEDS: PANTOPRAZOLE 40 MG TABLET.DR. PO SCH (10:11)
[2017-01-04] MEDS: POTASSIUM PHOSPHATE DIBASIC 10 MMOL in IV NORMAL SALINE 100ML 100 ML IV SCH ×2 (10:25→14:34)
[2017-01-04 11:00] VITALS: BP 131/48
--- NOTE | 2017-01-04 12:29 | PDOC ---
PROGRESS NOTES Chief Complaint Chief Complaint 1. bl ext tremors, 2/2 essential tremors vs. Raynauds syndrome 2. h/o CAD WITH BYpass sx 3. HTN 4. GERD 5. hypophosphatemia plan; neuro consult, EEG pending add vitb12 po daily given low side vitb12 decrease metoprolol to 25mg bid given low side bp cont supportive care PTOT dvt ppx fu ucx, no abx for now check vitd, mag, yosef check fobt for dark stool , Hb stable. replete Yosef History of Present Illness History of Present Illness feels ok in the am, still bl ext mild tremors, however, later in the afternoon, feels not good T 99.9 dark stool Vitals Vitals Vital Signs Date Time Temp Pulse Resp B/P (MAP) Pulse Ox O2 Delivery O2 Flow Rate FiO2 01/04/17 11:00 99.2 77 18 131/48 (75) 93 Room Air 99.2 Physical Exam General: Alert, Oriented X3, Cooperative Heart: Regular rate, Normal S1, Normal S2 Lungs: Clear Abdomen: Normal bowel sounds, Soft, No tenderness Extremities: No clubbing, No cyanosis Skin: No rashes Labs LABS Laboratory Tests Test 01/04/17 03:05 White Blood Count 7.4 x10^3/uL (4.0-11.0) Red Blood Count 4.00 x10^6/uL (3.50-5.40) Hemoglobin 11.3 g/dL (12.0-15.5) Hematocrit 33.5 % (36.0-47.0) Mean Corpuscular Volume 84 fL (79-100) Mean Corpuscular Hemoglobin 28 pg (25-35) Mean Corpuscular Hemoglobin Concent 34 g/dL (31-37) Red Cell Distribution Width 16.6 % (11.5-14.5) Platelet Count 189 x10^3/uL (140-400) Neutrophils (%) (Auto) 84 % (31-73) Lymphocytes (%) (Auto) 5 % (24-48) Monocytes (%) (Auto) 9 % (0-9) Eosinophils (%) (Auto) 1 % (0-3) Basophils (%) (Auto) 1 % (0-3) Neutrophils # (Auto) 6.2 x10^3uL (1.8-7.7) Lymphocytes # (Auto) 0.4 x10^3/uL (1.0-4.8) Monocytes # (Auto) 0.7 x10^3/uL (0.0-1.1) Eosinophils # (Auto) 0.1 x10^3/uL (0.0-0.7) Basophils # (Auto) 0.0 x10^3/uL (0.0-0.2) Sodium Level 132 mmol/L (136-145) Potassium Level 3.9 mmol/L (3.5-5.1) Chloride Level 100 mmol/L (98-107) Carbon Dioxide Level 23 mmol/L (21-32) Anion Gap 9 (6-14) Blood Urea Nitrogen 8 mg/dL (7-20) Creatinine 0.9 mg/dL (0.6-1.0) Estimated GFR (Cockcroft-Gault) 61.2 Glucose Level 111 mg/dL (70-99) Calcium Level 9.2 mg/dL (8.5-10.1) Phosphorus Level 2.5 mg/dL (2.6-4.7) Magnesium Level 1.9 mg/dL (1.8-2.4) Review of Systems Review of Systems no fever, chills, sob or chest pain Assessment and Plan Assessmemt and Plan Problems Medical Problems: (1) Leukocytosis Status: Acute (2) SIRS (systemic inflammatory response syndrome) Status: Acute (3) Tremor Status: Acute Problems: Comment Review of Relevant I have reviewed the following items lucero (where applicable) has been applied. Labs Laboratory Tests Test 01/03/17 05:45 01/04/17 03:05 White Blood Count 7.2 x10^3/uL (4.0-11.0) 7.4 x10^3/uL (4.0-11.0) Red Blood Count 3.86 x10^6/uL (3.50-5.40) 4.00 x10^6/uL (3.50-5.40) Hemoglobin 10.9 g/dL (12.0-15.5) 11.3 g/dL (12.0-15.5) Hematocrit 33.3 % (36.0-47.0) 33.5 % (36.0-47.0) Mean Corpuscular Volume 86 fL (79-100) 84 fL (79-100) Mean Corpuscular Hemoglobin 28 pg (25-35) 28 pg (25-35) Mean Corpuscular Hemoglobin Concent 33 g/dL (31-37) 34 g/dL (31-37) Red Cell Distribution Width 16.9 % (11.5-14.5) 16.6 % (11.5-14.5) Platelet Count 189 x10^3/uL (140-400) 189 x10^3/uL (140-400) Neutrophils (%) (Auto) 77 % (31-73) 84 % (31-73) Lymphocytes (%) (Auto) 11 % (24-48) 5 % (24-48) Monocytes (%) (Auto) 9 % (0-9) 9 % (0-9) Eosinophils (%) (Auto) 2 % (0-3) 1 % (0-3) Basophils (%) (Auto) 1 % (0-3) 1 % (0-3) Neutrophils # (Auto) 5.6 x10^3uL (1.8-7.7) 6.2 x10^3uL (1.8-7.7) Lymphocytes # (Auto) 0.8 x10^3/uL (1.0-4.8) 0.4 x10^3/uL (1.0-4.8) Monocytes # (Auto) 0.6 x10^3/uL (0.0-1.1) 0.7 x10^3/uL (0.0-1.1) Eosinophils # (Auto) 0.2 x10^3/uL (0.0-0.7) 0.1 x10^3/uL (0.0-0.7) Basophils # (Auto) 0.0 x10^3/uL (0.0-0.2) 0.0 x10^3/uL (0.0-0.2) Sodium Level 137 mmol/L (136-145) 132 mmol/L (136-145) Potassium Level 4.3 mmol/L (3.5-5.1) 3.9 mmol/L (3.5-5.1) Chloride Level 104 mmol/L (98-107) 100 mmol/L (98-107) Carbon Dioxide Level 24 mmol/L (21-32) 23 mmol/L (21-32) Anion Gap 9 (6-14) 9 (6-14) Blood Urea Nitrogen 12 mg/dL (7-20) 8 mg/dL (7-20) Creatinine 0.8 mg/dL (0.6-1.0) 0.9 mg/dL (0.6-1.0) Estimated GFR (Cockcroft-Gault) 70.1 61.2 Glucose Level 96 mg/dL (70-99) 111 mg/dL (70-99) Calcium Level 9.1 mg/dL (8.5-10.1) 9.2 mg/dL (8.5-10.1) Vitamin B12 Level 363 pg/mL (247-911) Thyroid Stimulating Hormone (TSH) 3.349 uIU/mL (0.358-3.74) Phosphorus Level 2.5 mg/dL (2.6-4.7) Magnesium Level 1.9 mg/dL (1.8-2.4) Laboratory Tests Test 01/04/17 03:05 White Blood Count 7.4 x10^3/uL (4.0-11.0) Red Blood Count 4.00 x10^6/uL (3.50-5.40) Hemoglobin 11.3 g/dL (12.0-15.5) Hematocrit 33.5 % (36.0-47.0) Mean Corpuscular Volume 84 fL (79-100) Mean Corpuscular Hemoglobin 28 pg (25-35) Mean Corpuscular Hemoglobin Concent 34 g/dL (31-37) Red Cell Distribution Width 16.6 % (11.5-14.5) Platelet Count 189 x10^3/uL (140-400) Neutrophils (%) (Auto) 84 % (31-73) Lymphocytes (%) (Auto) 5 % (24-48) Monocytes (%) (Auto) 9 % (0-9) Eosinophils (%) (Auto) 1 % (0-3) Basophils (%) (Auto) 1 % (0-3) Neutrophils # (Auto) 6.2 x10^3uL (1.8-7.7) Lymphocytes # (Auto) 0.4 x10^3/uL (1.0-4.8) Monocytes # (Auto) 0.7 x10^3/uL (0.0-1.1) Eosinophils # (Auto) 0.1 x10^3/uL (0.0-0.7) Basophils # (Auto) 0.0 x10^3/uL (0.0-0.2) Sodium Level 132 mmol/L (136-145) Potassium Level 3.9 mmol/L (3.5-5.1) Chloride Level 100 mmol/L (98-107) Carbon Dioxide Level 23 mmol/L (21-32) Anion Gap 9 (6-14) Blood Urea Nitrogen 8 mg/dL (7-20) Creatinine 0.9 mg/dL (0.6-1.0) Estimated GFR (Cockcroft-Gault) 61.2 Glucose Level 111 mg/dL (70-99) Calcium Level 9.2 mg/dL (8.5-10.1) Phosphorus Level 2.5 mg/dL (2.6-4.7) Magnesium Level 1.9 mg/dL (1.8-2.4) Microbiology 01/02/17 Blood Culture - Preliminary, Resulted NO GROWTH AFTER 2 DAYS Medications Current Medications Sodium Chloride 1,000 ml @ 1,000 mls/hr 1X ONCE IV Last administered on 02:11; Start 01/02/17 at 02:00; Stop 01/02/17 at 02:59; Status DC Ondansetron HCl (Zofran) 4 mg 1X ONCE IV Last administered on 01/02/17 02:11 ; Start 01/02/17 at 02:00; Stop 01/02/17 at 02:01; Status DC Acetaminophen (Tylenol) 650 mg 1X ONCE PO Last administered on 01/02/17 03:34 ; Start 01/02/17 at 03:30; Stop 01/02/17 at 03:31; Status DC Ceftriaxone Sodium 50 ml @ 100 mls/hr 1X ONCE IV Last administered on 03:33; Start 01/02/17 at 03:30; Stop 01/02/17 at 03:59; Status DC Ondansetron HCl (Zofran) 4 mg PRN Q8HRS PRN IV NAUSEA/VOMITING; Start 01/02/17 at 04:45; Stop 01/02/17 at 14:10; Status DC Acetaminophen (Tylenol) 650 mg PRN Q4HRS PRN PO FEVER; Start 01/02/17 at 04:45 ; Stop 01/02/17 at 14:09; Status DC Fenofibrate (Lofibra) 134 mg DAILY PO Last administered on 01/04/17 10:02; Start 01/02/17 at 12:30 Metoprolol Tartrate (Lopressor) 50 mg BID PO ; Start 01/02/17 at 12:30; Stop 07/09 at 14:02; Status DC Nitroglycerin (Nitrostat) 0.4 mg PRN Q5MIN PRN SL CHEST PAIN; Start 01/02/17 at 11:45 Ascorbic Acid (Vitamin C) 1,000 mg DAILY PO Last administered on 01/04/17 10: 04; Start 01/02/17 at 12:30 Calcium/Vitamin D (Oscal D 500mg/ 200uts) 1 tab BIDWMEALS PO Last administered on 01/04/17 10:02; Start 01/02/17 at 17:00 Famotidine (Pepcid) 20 mg DAILY PO ; Start 01/02/17 at 12:30; Stop 01/02/17 at 13:58; Status DC Cetirizine HCl (ZyrTEC) 10 mg DAILY PO ; Start 01/02/17 at 12:30 Non-Formulary Medication 500 mg DAILY PO ; Start 01/03/17 at 09:00; Status UNV Multivitamins (Thera M Plus) 1 tab DAILY PO Last administered on 01/04/17 10: 03; Start 01/02/17 at 12:30 Pantoprazole Sodium (Protonix) 40 mg DAILYAC PO Last administered on 01/04/17 10:11; Start 01/02/17 at 12:30 Non-Formulary Medication 1 tab DAILY PO ; Start 01/03/17 at 09:00; Status UNV Atorvastatin Calcium (Lipitor) 80 mg QHS PO Last administered on 01/03/17 19: 53; Start 01/02/17 at 21:00 Non-Formulary Medication 113 gm HS DT ; Start 01/02/17 at 21:00; Status UNV Famotidine (Pepcid) 20 mg QHS PO Last administered on 01/03/17 19:53; Start at 21:00 Metoprolol Tartrate (Lopressor) 25 mg BID PO Last administered on 01/04/17 10: 03; Start 01/02/17 at 21:00 Acetaminophen (Tylenol) 650 mg PRN Q6HRS PRN PO FEVER Last administered on 01/03 16:26; Start 01/02/17 at 14:15 Ondansetron HCl (Zofran) 4 mg PRN Q6HRS PRN IV NAUSEA/VOMITING; Start 01/02/17 at 14:15 Morphine Sulfate 2 mg PRN Q2HR PRN IV PAIN; Start 01/02/17 at 14:15 Tramadol HCl (Ultram) 50 mg PRN Q6HRS PRN PO PAIN; Start 01/02/17 at 14:15 Hydralazine HCl (Apresoline) 10 mg PRN Q4HRS PRN IVP ELEVATED BP, SEE COMMENTS ; Start 01/02/17 at 14:15 Docusate Sodium (Colace) 100 mg PRN DAILY PRN PO CONSTIPATION Last administered on 01/03/17 09:53; Start 01/02/17 at 14:15 Enoxaparin Sodium (Lovenox 40mg Syringe) 40 mg Q24H SQ Last administered on 13:24; Start 01/02/17 at 14:30 Cyanocobalamin (Vitamin B-12) 1,000 mcg DAILY PO Last administered on 10:03; Start 01/04/17 at 09:00 Psyllium Hydrophilic Mucilloid (Metamucil Fiber Packet) 1 pkt BID PO Last administered on 01/04/17 10:03; Start 01/04/17 at 09:00 Al Hydroxide/Mg Hydroxide (Mylanta Plus Xs) 30 ml PRN Q2HR PRN PO HEARTBURN / GAS Last administered on 01/03/17 19:53; Start 01/03/17 at 19:45 Potassium Phosphate 10 mmol/ Sodium Chloride 103.3333 ml @ 51.667 m... Q2H IV Last administered on 01/04/17 10:25; Start 01/04/17 at 10:00; Stop 01/04/17 at 13:59 Active Scripts Active Reported Metamucil Packet (Psyllium Seed (With Sugar)) 1 Each Packet 1 Each PO BID Fosamax (Alendronate Sodium) 70 Mg Tablet 1 Tab PO WEEKLY Crestor (Rosuvastatin Calcium) 20 Mg Tablet 1 Tab PO DAILY NITROGLYCERIN SubLingual (Nitroglycerin) 0.4 Mg Tab.subl 0.4 Mg SL PRN Q5MIN PRN NITRO-DUR 0.4mg/hr (Nitroglycerin) 1 Each Patch.td24 1 Each TD PRN DAILY PRN Calcium 500 + Vit D 400 Tablet (Calcium Carbonate/Vitamin D3) 1 Each Tablet 1 Each PO BID Multi Vitamin Daily (Multivitamin) 1 Each Tablet 1 Each PO DAILY Vitamin C (Ascorbic Acid) 1,000 Mg Tablet 1,000 Mg PO DAILY Citrucel (Methylcellulose) 500 Mg Tablet 500 Mg PO DAILY Clinpro 5000 (Sodium Fluoride) 113 Gm Paste..g. 113 Gm DT HS Claritin (Loratadine) 10 Mg Tablet 10 Mg PO DAILY Famotidine 40 Mg Tablet 40 Mg PO DAILY Omeprazole 40 Mg Capsule.dr 40 Mg PO BID Aspir 81 (Aspirin) 81 Mg Tablet.dr 162 Mg PO DAILY Fenofibrate (Fenofibrate,Micronized) 134 Mg Capsule 134 Mg PO DAILY Metoprolol Tartrate 50 Mg Tablet 50 Mg PO BID Crestor (Rosuvastatin Calcium) 20 Mg Tablet 20 Mg PO HS Clopidogrel (Clopidogrel Bisulfate) 75 Mg Tablet 75 Mg PO DAILY Vitals/I & O Vital Sign - Last 24 Hours 01/03/17 01/03/17 01/03/17 01/03/17 14:30 19:00 19:57 20:00 Temp 100.0 97.9 100.0 97.9 Pulse 72 72 71 Resp 18 18 B/P (MAP) 141/54 (83) 98/47 (64) 98/42 Pulse Ox 93 92 O2 Delivery Room Air Room Air Room Air 01/03/17 01/04/17 01/04/17 01/04/17 22:37 02:57 07:00 10:03 Temp 99.1 98.8 99.9 99.1 98.8 99.9 Pulse 71 63 90 90 Resp 18 18 18 B/P (MAP) 143/53 (83) 127/46 (73) 129/52 (77) 129/52 Pulse Ox 90 92 91 O2 Delivery Room Air Room Air Room Air 01/04/17 11:00 Temp 99.2 99.2 Pulse 77 Resp 18 B/P (MAP) 131/48 (75) Pulse Ox 93 O2 Delivery Room Air Intake and Output 01/03/17 01/03/17 01/04/17 15:00 23:00 07:00 Intake Total 420 ml 780 ml Balance 420 ml 780 ml TATY RIVERA MD Jan 04, 2017 12:29
[2017-01-04 14:39] VITALS: BP 137/54
[2017-01-04 14:54] LABS: NEG OBC FOB NEG; POS OBC FOB POS
[2017-01-04] MEDS: ENOXAPARIN 40 MG/0.4 ML SYRINGE. SQ SCH (16:16)
--- NOTE | 2017-01-04 17:02 | PDOC ---
PROGRESS NOTES Assessment Assessment Abnormal movements in hands. Chronic essential tremors. PD not likely. Leukocytosis. Raynaud syndrome. CAD, s/p CABG Other medical diseases. RECOMMENDATIONS/PLAN: Beta-amanda daily. Treat medical diseases. Discussed with her at bedside. EEG on 01/04: No seizure activity. HISTORY OF THE PRESENT ILLNESS: 76-y-old female patient with above medical diseases has been having chronic tremors or abnormal movements for about 6 months. She stated she had more tremors when she got cold especially in her hands since she had Raynaud syndrome. She noted tremors when she used hand for eating, drinking and writing. No tremors during sleeping. PAST MEDICAL HISTORY: Please see above. PAST SURGERY HISTORY: S/P CABG ALLERGY: Reviewed. MEDICATIONS: Refer to [facility] HISTORY: Non contributory. No tremors. SOCIAL HISTORY: Denies smoking, drinking, and illicit drug use. REVIEW OF SYSTEMS: Constitutional: No malnutrition, weight loss, cachexia. Head: No traumatic brain or head injury. Skin: No edema, or rash. Ear: No infection. Eyes: No vision loss or color blindness. Nose: No bleeding or purulent discharges. Hearing: Hearing decrease. Neck: No injury. Breast: No history of cancer, masses,or discharges. Cardiac: CAD, s/p CABG. Pulmonary: No COPD. GI: No GI ulcer, GI bleeding. Urinary/genital: UTI. Endocrinologic: No cousin face, craniofacial dysmorphism, polydactyly. Skeletomuscular: No muscular atrophy, deformity. Neurological: see HP. Psychiatric: Denies drug use/abuse. Otherwise, not -crtiq review of systems. PHYSICAL EXAMINATION: General appearance is in no acute distress. HEENT: Normocephalic and nontraumatic. Eyes, nose, ears, and throat are unremarkable. Neck is supple. No lymphadenopathy. No crepitus. Cardiovascular: S1, S2, regular rate and rhythm. Pulmonary: Clear to auscultation bilaterally. Abdomen: Bowel sounds are positive. Extremities: No rash, lesions, or edema. No restriction of range of motion NEUROLOGICAL EXAMINATION: Awake. Oriented to time, place and person. PERRL. EOMI. CN: no focal findings. Muscle tone: within normal. Muscle strength: 5- DTR: 2 Plantar reflex: Flexor response bilaterally Gait: not examined in bed. Sensory exam: no abnormal findings. No cerebellar signs elicited. F-T-N test fine. Objective Objective Vital Signs Date Time Temp Pulse Resp B/P (MAP) Pulse Ox O2 Delivery O2 Flow Rate FiO2 01/04/17 14:39 99.0 69 18 137/54 (81) 93 Room Air 99.0 Intake and Output 01/04/17 07:00 Intake Total 1200 ml Balance 1200 ml Intake Oral 1200 ml # Voids 9 # Bowel Movements 2 Vitals Signs Vitals VS - Last 72 Hours, by Label Date Time Temp Pulse Resp B/P (MAP) Pulse Ox O2 Delivery O2 Flow Rate FiO2 01/04/17 14:39 99.0 69 18 137/54 (81) 93 Room Air 99.0 01/04/17 11:00 99.2 77 18 131/48 (75) 93 Room Air 99.2 01/04/17 10:03 90 129/52 01/04/17 08:00 Room Air 01/04/17 07:00 99.9 90 18 129/52 (77) 91 Room Air 99.9 01/04/17 02:57 98.8 63 18 127/46 (73) 92 Room Air 98.8 01/03/17 22:37 99.1 71 18 143/53 (83) 90 Room Air 99.1 01/03/17 20:00 Room Air 01/03/17 19:57 71 98/42 01/03/17 19:00 97.9 72 18 98/47 (64) 92 Room Air 97.9 01/03/17 14:30 100.0 72 18 141/54 (83) 93 Room Air 100.0 01/03/17 10:30 98.1 64 18 128/55 (79) 94 Room Air 98.1 01/03/17 09:35 64 130/49 01/03/17 08:00 Room Air 01/03/17 07:30 97.9 64 18 130/49 (76) 94 Room Air 97.9 Laboratory Laboratory Laboratory Tests Test 01/04/17 03:05 01/04/17 14:30 White Blood Count 7.4 x10^3/uL (4.0-11.0) Red Blood Count 4.00 x10^6/uL (3.50-5.40) Hemoglobin 11.3 g/dL (12.0-15.5) Hematocrit 33.5 % (36.0-47.0) Mean Corpuscular Volume 84 fL (79-100) Mean Corpuscular Hemoglobin 28 pg (25-35) Mean Corpuscular Hemoglobin Concent 34 g/dL (31-37) Red Cell Distribution Width 16.6 % (11.5-14.5) Platelet Count 189 x10^3/uL (140-400) Neutrophils (%) (Auto) 84 % (31-73) Lymphocytes (%) (Auto) 5 % (24-48) Monocytes (%) (Auto) 9 % (0-9) Eosinophils (%) (Auto) 1 % (0-3) Basophils (%) (Auto) 1 % (0-3) Neutrophils # (Auto) 6.2 x10^3uL (1.8-7.7) Lymphocytes # (Auto) 0.4 x10^3/uL (1.0-4.8) Monocytes # (Auto) 0.7 x10^3/uL (0.0-1.1) Eosinophils # (Auto) 0.1 x10^3/uL (0.0-0.7) Basophils # (Auto) 0.0 x10^3/uL (0.0-0.2) Sodium Level 132 mmol/L (136-145) Potassium Level 3.9 mmol/L (3.5-5.1) Chloride Level 100 mmol/L (98-107) Carbon Dioxide Level 23 mmol/L (21-32) Anion Gap 9 (6-14) Blood Urea Nitrogen 8 mg/dL (7-20) Creatinine 0.9 mg/dL (0.6-1.0) Estimated GFR (Cockcroft-Gault) 61.2 Glucose Level 111 mg/dL (70-99) Calcium Level 9.2 mg/dL (8.5-10.1) Phosphorus Level 2.5 mg/dL (2.6-4.7) Magnesium Level 1.9 mg/dL (1.8-2.4) Stool Occult Blood Negative (NEG) Microbiology 01/02/17 Blood Culture - Preliminary, Resulted NO GROWTH AFTER 2 DAYS Medication Medications Current Medications Al Hydroxide/Mg Hydroxide (Mylanta Plus Xs) 30 ml PRN Q2HR PRN PO HEARTBURN / GAS Last administered on 01/03/17t 19:53; Start 01/03/17 at 19:45 Cyanocobalamin (Vitamin B-12) 1,000 mcg DAILY PO Last administered on 10:03; Start 01/04/17 at 09:00 Potassium Phosphate 10 mmol/ Sodium Chloride 103.3333 ml @ 51.667 m... Q2H IV Last administered on 01/04/17 14:34; Start 01/04/17 at 10:00; Stop 01/04/17 at 13:59; Status DC Psyllium Hydrophilic Mucilloid (Metamucil Fiber Packet) 1 pkt BID PO Last administered on 01/04/17 10:03; Start 01/04/17 at 09:00 Comment Review of Relevant I have reviewed the following items lucero (where applicable) has been applied. AZEEM GONZALEZ MD Jan 04, 2017 17:02
--- NOTE | 2017-01-04 18:37 | EEG ---
DATE OF SERVICE: 01/04/2017 EEG NUMBER: [id number] OBJECTIVE: This is a 76-year-old female patient with history of abnormal movements but become worse. EEG was requested to help rule out seizure. METHODS: Twenty electrodes were applied according to the international 10-20 electrode placement system. EKG monitoring, hyperventilation, intermittent photic stimulation, monopolar and bipolar montages are routinely utilized. The record was obtained on a digital system with video monitoring. FINDINGS: 1. Background: The patient was recorded in the awake and drowsy states. No sleep states. The overall background amplitude is 10-20 microvolts. A posterior dominant rhythm of 8 Hz is observed. 2. Abnormalities: No specific epileptiform discharge or electrographic seizure is seen. No focal or diffuse slowing. 3. Activation: Hyperventilation was performed with fair efforts and normal response. Intermittent photic stimulation was performed with photic driving. No specific epileptiform discharge or electrographic seizure induced by hyperventilation or intermittent photic stimulation. IMPRESSION: This EEG is a normal study for the awake and drowsy states. No actual sleep state was recorded. No focal, lateralizing, specific epileptiform discharge or electrographic seizure is seen. AZEEM GONZALEZ MD DR: Gavin JOB#: [id number] / [id number] DAJA
[2017-01-04] MEDS: ATORVASTATIN CALCIUM 40 MG TABLET. PO SCH (20:42)
[2017-01-04] MEDS: FAMOTIDINE 20 MG TABLET. PO SCH (20:42)
[2017-01-04 23:00] VITALS: BP 144/56
[2017-01-05 04:43] LABS: BASO # 0.1 x10^3/uL (0.0-0.2); BASO % 1 % (0-3); EOS % 5 % (0-3); HEMOGLOBIN 11.3 g/dL (12.0-15.5); LYMPH # 0.5 x10^3/uL (1.0-4.8); LYMPH % 8 % (24-48); MEAN CORPUSCULAR HEMOGLOBIN 28 pg (25-35); MEAN CORPUSCULAR HGB CONC 33 g/dL (31-37); MEAN CORPUSCULAR VOLUME 85 fL (79-100); MONO % 10 % (0-9); NEUT % 77 % (31-73); PLATELET COUNT 192 x10^3/uL (140-400); RED BLOOD COUNT 3.98 x10^6/uL (3.50-5.40); RED CELL DISTRIBUTION WIDTH 16.8 % (11.5-14.5)
[2017-01-05 05:01] LABS: CALCIUM 9.4 mg/dL (8.5-10.1); CREATININE 0.7 mg/dL (0.6-1.0); GFR 81.8; MAGNESIUM 1.9 mg/dL (1.8-2.4); PHOSPHORUS 2.4 mg/dL (2.6-4.7); POTASSIUM 3.8 mmol/L (3.5-5.1)
[2017-01-05 07:00] VITALS: BP 124/53
[2017-01-05] MEDS: CETIRIZINE HCL 10 MG TABLET. PO SCH ×2 (09:04→09:09)
[2017-01-05] MEDS: MULTIVITAMIN with MINERAL TABLET. PO SCH (09:04)
[2017-01-05] MEDS: ASCORBIC ACID 500 MG TABLET PO SCH (09:04)
[2017-01-05] MEDS: CYANOCOBALAMIN (VITAMIN B-12) 1,000 MCG TABLET. PO SCH (09:04)
[2017-01-05] MEDS: PANTOPRAZOLE 40 MG TABLET.DR. PO SCH (09:04)
[2017-01-05] MEDS: FENOFIBRATE,MICRONIZED 134 MG CAPSULE PO SCH (09:04)
[2017-01-05] MEDS: CALCIUM CARB/VIT D3 500/200 TABLET. PO SCH (09:04)
[2017-01-05] MEDS: METOPROLOL TART IMMED RELEASE 25 MG TABLET. PO SCH (09:05)
[2017-01-05] MEDS: PSYLLIUM HUSK (SUGAR FREE) 1 PKT PACKET PO SCH (09:05)
[2017-01-05 11:00] VITALS: BP 136/63
[2017-01-05] MEDS ORDERED: METO25TA4 PO (11:25)
[2017-01-05] MEDS ORDERED: CYAN10005 PO (11:25)
--- NOTE | 2017-01-05 11:48 | PDOC ---
PROGRESS NOTES Assessment Assessment Abnormal movements in hands. Chronic essential tremors. PD not likely. Leukocytosis. Raynaud syndrome. CAD, s/p CABG Other medical diseases. RECOMMENDATIONS/PLAN: Continue Beta-amanda daily. Treat medical diseases. FU with PCP. FU with Neurology as needed. Discussed with her at bedside on 01/03 and 01/04. EEG on 01/04: No seizure activity. HISTORY OF THE PRESENT ILLNESS: 76-y-old female patient with above medical diseases has been having chronic tremors or abnormal movements for about 6 months. She stated she had more tremors when she got cold especially in her hands since she had Raynaud syndrome. She noted tremors when she used hand for eating, drinking and writing. No tremors during sleeping. She stated she was doing better on 01/05. PAST MEDICAL HISTORY: Please see above. PAST SURGERY HISTORY: S/P CABG ALLERGY: Reviewed. MEDICATIONS: Refer to [facility] HISTORY: Non contributory. No tremors. SOCIAL HISTORY: Denies smoking, drinking, and illicit drug use. REVIEW OF SYSTEMS: Constitutional: No malnutrition, weight loss, cachexia. Head: No traumatic brain or head injury. Skin: No edema, or rash. Ear: No infection. Eyes: No vision loss or color blindness. Nose: No bleeding or purulent discharges. Hearing: Hearing decrease. Neck: No injury. Breast: No history of cancer, masses,or discharges. Cardiac: CAD, s/p CABG. Pulmonary: No COPD. GI: No GI ulcer, GI bleeding. Urinary/genital: UTI. Endocrinologic: No cousin face, craniofacial dysmorphism, polydactyly. Skeletomuscular: No muscular atrophy, deformity. Neurological: see HP. Psychiatric: Denies drug use/abuse. Otherwise, not [id number] review of systems. PHYSICAL EXAMINATION: General appearance is in no acute distress. HEENT: Normocephalic and nontraumatic. Eyes, nose, ears, and throat are unremarkable. Neck is supple. No lymphadenopathy. No crepitus. Cardiovascular: S1, S2, regular rate and rhythm. Pulmonary: Clear to auscultation bilaterally. Abdomen: Bowel sounds are positive. Extremities: No rash, lesions, or edema. No restriction of range of motion NEUROLOGICAL EXAMINATION: Awake. Oriented to time, place and person. PERRL. EOMI. CN: no focal findings. Muscle tone: within normal. Muscle strength: 5- DTR: 2 Plantar reflex: Flexor response bilaterally Gait: not examined in bed. Sensory exam: no abnormal findings. No cerebellar signs elicited. F-T-N test fine. Mild tremors in hands as noted before. Objective Objective Vital Signs Date Time Temp Pulse Resp B/P (MAP) Pulse Ox O2 Delivery O2 Flow Rate FiO2 01/05/17 11:00 99.1 70 18 136/63 (87) 90 Room Air 99.1 Intake and Output 01/05/17 07:00 Intake Total 800 ml Output Total 200 ml Balance 600 ml Intake Oral 800 ml Output Urine Total 200 ml # Voids 9 Vitals Signs Vitals VS - Last 72 Hours, by Label Date Time Temp Pulse Resp B/P (MAP) Pulse Ox O2 Delivery O2 Flow Rate FiO2 01/05/17 11:00 99.1 70 18 136/63 (87) 90 Room Air 99.1 01/05/17 09:05 68 124/53 01/05/17 07:35 Room Air 01/05/17 07:00 98.4 68 18 124/53 (76) 92 Room Air 98.4 01/05/17 03:00 Room Air 01/04/17 23:00 98.1 65 20 144/56 (85) 94 Room Air 98.1 01/04/17 20:43 70 145/49 01/04/17 20:00 Room Air 01/04/17 14:39 99.0 69 18 137/54 (81) 93 Room Air 99.0 01/04/17 11:00 99.2 77 18 131/48 (75) 93 Room Air 99.2 01/04/17 10:03 90 129/52 01/04/17 08:00 Room Air 01/04/17 07:00 99.9 90 18 129/52 (77) 91 Room Air 99.9 Laboratory Laboratory Laboratory Tests Test 01/04/17 14:30 01/05/17 02:52 Stool Occult Blood Negative (NEG) White Blood Count 7.0 x10^3/uL (4.0-11.0) Red Blood Count 3.98 x10^6/uL (3.50-5.40) Hemoglobin 11.3 g/dL (12.0-15.5) Hematocrit 34.0 % (36.0-47.0) Mean Corpuscular Volume 85 fL (79-100) Mean Corpuscular Hemoglobin 28 pg (25-35) Mean Corpuscular Hemoglobin Concent 33 g/dL (31-37) Red Cell Distribution Width 16.8 % (11.5-14.5) Platelet Count 192 x10^3/uL (140-400) Neutrophils (%) (Auto) 77 % (31-73) Lymphocytes (%) (Auto) 8 % (24-48) Monocytes (%) (Auto) 10 % (0-9) Eosinophils (%) (Auto) 5 % (0-3) Basophils (%) (Auto) 1 % (0-3) Neutrophils # (Auto) 5.3 x10^3uL (1.8-7.7) Lymphocytes # (Auto) 0.5 x10^3/uL (1.0-4.8) Monocytes # (Auto) 0.7 x10^3/uL (0.0-1.1) Eosinophils # (Auto) 0.3 x10^3/uL (0.0-0.7) Basophils # (Auto) 0.1 x10^3/uL (0.0-0.2) Sodium Level 131 mmol/L (136-145) Potassium Level 3.8 mmol/L (3.5-5.1) Chloride Level 99 mmol/L (98-107) Carbon Dioxide Level 22 mmol/L (21-32) Anion Gap 10 (6-14) Blood Urea Nitrogen 7 mg/dL (7-20) Creatinine 0.7 mg/dL (0.6-1.0) Estimated GFR (Cockcroft-Gault) 81.8 Glucose Level 85 mg/dL (70-99) Calcium Level 9.4 mg/dL (8.5-10.1) Phosphorus Level 2.4 mg/dL (2.6-4.7) Magnesium Level 1.9 mg/dL (1.8-2.4) Microbiology 01/02/17 Blood Culture - Preliminary, Resulted NO GROWTH AFTER 3 DAYS Comment Review of Relevant I have reviewed the following items lucero (where applicable) has been applied. AZEEM GONZALEZ MD Jan 05, 2017 11:48
--- NOTE | 2017-01-05 13:30 | PDOC3 ---
Discharge Summary [facility] Date of Admission: Jan 02, 2017 Discharge Date: Jan 05, 2017 Admitting Diagnosis 1. bl ext tremors, 2/2 essential tremors vs. Raynauds syndrome 2. h/o CAD WITH BYpass sx 3. HTN 4. GERD 5. hypophosphatemia 6. SIRS , NO INfection Problems: Final Diagnosis CONSULTS neuro Brief Hospital Course 76yo F, comes for bl ext tremors. Pt has Raynauds syndrome with bl hands cold , white sometimes. She said she started to feel bl hands, feet mild tremors yesterday, better today. She worried about hyponatremia, then came to ER. Na 134. has chronic urinary frequency. UA clean. pt feels ok, bl ext tremors flucuates, mild tho. neuro consulted, neg EEG. dc home with metoprolol 25mg po bid,vitamin b12 daily. dc time 35min General: Alert, Oriented X3, Cooperative Heart: Regular rate, Normal S1, Normal S2 Lungs: Clear Abdomen: Normal bowel sounds, Soft, No tenderness Extremities: No clubbing, No cyanosis Skin: No rashes Patient History: Problems: Disposition home CONDITION AT DISCHARGE: Improved Diet regular Scheduled Alendronate Sodium (Fosamax), 1 TAB PO WEEKLY, (Reported) Ascorbic Acid (Vitamin C), 1,000 MG PO DAILY, (Reported) Aspirin (Aspir 81), 162 MG PO DAILY, (Reported) Calcium Carbonate/Vitamin D3 (Calcium 500 + Vit D 400 Tablet), 1 EACH PO BID, ( Reported) Clopidogrel Bisulfate (Clopidogrel), 75 MG PO DAILY, (Reported) Cyanocobalamin (Vitamin B-12) (Vitamin B-12), 1,000 MCG PO DAILY Famotidine (Famotidine), 40 MG PO DAILY, (Reported) Fenofibrate,Micronized (Fenofibrate), 134 MG PO DAILY, (Reported) Loratadine (Claritin), 10 MG PO DAILY, (Reported) Methylcellulose (Citrucel), 500 MG PO DAILY, (Reported) Metoprolol Tartrate (Metoprolol Tartrate), 25 MG PO BID Multivitamin (Multi Vitamin Daily), 1 EACH PO DAILY, (Reported) Omeprazole (Omeprazole), 40 MG PO BID, (Reported) Psyllium Seed (With Sugar) (Metamucil Packet), 1 EACH PO BID, (Reported) Rosuvastatin Calcium (Crestor), 1 TAB PO DAILY, (Reported) Sodium Fluoride (Clinpro 5000), 113 GM DT HS, (Reported) Scheduled PRN Nitroglycerin (NITROGLYCERIN SubLingual), 0.4 MG SL PRN Q5MIN PRN for CHEST PAIN , (Reported) Discontinued Medications Metoprolol Tartrate (Metoprolol Tartrate), 50 MG PO BID, (Reported) Nitroglycerin (NITRO-DUR 0.4mg/hr), 1 EACH TD PRN DAILY PRN for CHEST PAIN, ( Reported) Rosuvastatin Calcium (Crestor), 20 MG PO HS, (Reported) Follow Up pcp in 2 weeks TATY RIVERA MD Jan 05, 2017 13:30
== END 2017-01-05 14:48 | disposition home or self-care (01) | DRG 546 ==
LOC: ER 00:45 → 5 NORTH 04:23
PROVIDERS: ADMIT Internal Medicine Hematology & Oncology; ATTEND Internal Medicine Hematology & Oncology
DX: I73.00 Raynaud's syndrome without gangrene (principal); R65.10 Systemic inflammatory response syndrome (SIRS) of non-infectious origin without acute organ dysfunction; K21.9 Gastro-esophageal reflux disease without esophagitis; G25.0 Essential tremor; I25.10 Atherosclerotic heart disease of native coronary artery without angina pectoris; I10 Essential (primary) hypertension; E83.39 Other disorders of phosphorus metabolism; R19.5 Other fecal abnormalities; R35.0 Frequency of micturition; Z95.1 Presence of aortocoronary bypass graft; Z90.49 Acquired absence of other specified parts of digestive tract; Z88.2 Allergy status to sulfonamides; Z88.1 Allergy status to other antibiotic agents; Z88.8 Allergy status to other drugs, medicaments and biological substances; Z79.899 Other long term (current) drug therapy; Z79.1 Long term (current) use of non-steroidal anti-inflammatories (NSAID); Z79.2 Long term (current) use of antibiotics
CPT/HCPCS: 36415; 71010; 80048; 80053; 81001; 82274; 82306; 82607; 83605; 83735; 84100; 84443; 85007; 85027; 87040; 95816; 96361; 96365; 96375; J0690; J1650; J2405; J7030; 97116; 99285-25

== ENCOUNTER → 2017-02-03 | Outpatient (CLI) | payer MEDICARE ==
[2017-01-05 11:00] VITALS: BP 136/63
[~2017-02-03] MED LIST changes: +ALEN70TA3 PO; +CYAN10005 PO; +METO25TA4 PO; +PSYL1PAC7 PO
[2017-02-03 10:39] LABS: PROTHROMBIN TIME PATIENT 39.7 SEC (11.7-14.0)
[2017-02-03 11:49] LABS: INR 4.5 (0.8-1.1)
== END | disposition home or self-care (01) ==
LOC: LAB 10:02
PROVIDERS: ATTEND Internal Medicine Cardiovascular Disease
DX: I48.3 Typical atrial flutter (principal)
CPT/HCPCS: 36415; 85610

== ENCOUNTER 2017-08-12 13:17 | Emergency (ER) | payer MEDICARE | END 2017-08-12 14:48 | disposition home or self-care (01) | LOC: ER 13:17 | DX: R09.81 Nasal congestion (principal); I10 Essential (primary) hypertension; K21.9 Gastro-esophageal reflux disease without esophagitis; I25.10 Atherosclerotic heart disease of native coronary artery without angina pectoris; I73.00 Raynaud's syndrome without gangrene; Z95.1 Presence of aortocoronary bypass graft; Z88.2 Allergy status to sulfonamides; Z88.1 Allergy status to other antibiotic agents; Z88.6 Allergy status to analgesic agent | CPT/HCPCS: 99284 ==

== ENCOUNTER 2017-09-05 14:38 | Emergency (ER) | payer MEDICARE ==
[2017-09-05] MEDS: ACETAMINOPHEN 325 MG TABLET. PO ×2 (16:35)
[2017-09-05] MEDS: SODIUM PHOSPHATES 19/7GM 133 ML ENEMA. PR ×2 (17:05)
== END 2017-09-05 18:50 | disposition home or self-care (01) ==
LOC: ER 14:38
DX: K59.00 Constipation, unspecified (principal); K21.9 Gastro-esophageal reflux disease without esophagitis; I25.10 Atherosclerotic heart disease of native coronary artery without angina pectoris; I10 Essential (primary) hypertension; Z88.2 Allergy status to sulfonamides; Z88.1 Allergy status to other antibiotic agents; Z88.6 Allergy status to analgesic agent; Z88.8 Allergy status to other drugs, medicaments and biological substances; Z90.49 Acquired absence of other specified parts of digestive tract; Z95.1 Presence of aortocoronary bypass graft
CPT/HCPCS: 74022; 99284

== ENCOUNTER 2018-06-24 11:05 | Emergency (ER) | payer MEDICARE, OTHER ==
[~2018-06-24] VITALS: Ht 151.1 cm; Wt 54.4 kg
[~2018-06-24 11:05] MED LIST changes: +DOCU-109 PO; -METO50TA2 PO; +METO50TA6 PO; +NITR1PAT73 TD; -NITR1PAT9 TD; +SENN8.6T99 PO; +WARF2TAB96 PO
--- NOTE | 2018-06-24 11:56 | PHYS DOC ---
Past Medical History Past Medical History: A-Fib, CAD, GERD, Hypertension, Other Additional Past Medical Histor: raynauds Past Surgical History: No Surgical History, Cholecystectomy, Coronary Bypass Surgery, Other Additional Past Surgical Histo: colonoscopy Alcohol Use: None Drug Use: None Adult General Chief Complaint Chief Complaint: LOWER EXT PAIN HPI HPI Patient is a 77-year-old female who presents to the emergency department for evaluation. She states that she is having pain in her lower back, radiating down her left buttock, and left lateral and posterior leg, to just below the knee. She states that she has been having pain since before , and her PCP called and has an IV which helped her initially, but then stopped working. The patient denies any numbness, weakness, incontinence, or any recent falls or injuries. The patient denies any abdominal pain, nausea, vomiting, or dysuria. There are no alleviating, or exacerbating factors to the patient's symptoms. The patient did have a CT of her abdomen and pelvis several years ago , which did not show any evidence of an aortic aneurysm at that time. Review of Systems Review of Systems Constitutional: Denies fever or chills [] Eyes: Denies change in visual acuity, redness, or eye pain [] HENT: Denies nasal congestion or sore throat [] Respiratory: Denies cough or shortness of breath [] Cardiovascular:The patient denies any shortness of breath, chest pain, palpitations, or orthopnea[] GI: Denies abdominal pain, nausea, vomiting, bloody stools or diarrhea [] : Denies dysuria or hematuria [] Musculoskeletal: Denies neck pain or joint pain [] Integument: Denies rash or skin lesions [] Neurologic: Denies headache, focal weakness or sensory changes [] Endocrine: Denies polyuria or polydipsia [] All other systems were reviewed and found to be within normal limits, except as documented in this note. Current Medications Current Medications Current Medications Medications (Trade) Dose Ordered Sig/Blake Start Time Stop Time Status Last Admin Dose Admin Diazepam (Valium) 5 mg 1X ONCE 06/24/18 11:45 06/24/18 11:47 DC 06/24/18 12:18 5 MG Morphine Sulfate (Morphine Sulfate) 4 mg 1X ONCE 06/24/18 11:45 06/24/18 11:47 DC 06/24/18 12:20 4 MG Allergies Allergies Allergies Coded Allergies Type Severity Reaction Last Updated Verified Sulfa (Sulfonamide Antibiotics) Allergy Intermediate intolerance 06/24/18 Yes ciprofloxacin Allergy Intermediate rash 06/24/18 Yes naproxen Allergy Intermediate 06/24/18 Yes polyethylene glycol Allergy Intermediate 06/24/18 Yes propofol Allergy Intermediate 06/24/18 Yes propoxyphene Allergy Intermediate 06/24/18 Yes Physical Exam Physical Exam PHYSICAL EXAM: CONSTITUTIONAL: Well developed, well nourished HEAD: normocephalic, atraumatic EENT: PERRL, EOMI. Conjunctivae normal color, sclerae non-icteric; moist mucous membranes. NECK: Supple, non-tender; no meningismus. LUNGS: Lungs CTA, breathing even and unlabored. Normal air movement. HEART: Regular rate and rhythm, there is a holosystolic murmur CHEST: No deformity; non-tender ABDOMEN: The abdomen is soft, and non-tender, no masses or bruits. EXTREM: Normal ROM; no deformity, no calf tenderness. Normal pulses palpable in all extremities. There is no pedal edema. SKIN: No rash; no diaphoresis NEURO: Alert; normal speech and cognition; CN's grossly intact; strength grossly intact without focal deficit. Straight leg raise is negative on the left. There is no foot drop. There is no perineal anesthesia. BACK: No CVA TTP. There is mild tenderness to palpation diffusely of the lower left paraspinal lumbar/sacral spine. Current Patient Data Vital Signs Vital Signs Date Time Temp Pulse Resp B/P (MAP) Pulse Ox O2 Delivery O2 Flow Rate FiO2 06/24/18 14:00 56 20 120/58 (78) 95 Room Air 06/24/18 11:30 98.2 98.2 Lab Values Laboratory Tests Test 06/24/18 12:10 06/24/18 13:40 White Blood Count 9.2 x10^3/uL (4.0-11.0) Red Blood Count 4.18 x10^6/uL (3.50-5.40) Hemoglobin 12.1 g/dL (12.0-15.5) Hematocrit 36.7 % (36.0-47.0) Mean Corpuscular Volume 88 fL (79-100) Mean Corpuscular Hemoglobin 29 pg (25-35) Mean Corpuscular Hemoglobin Concent 33 g/dL (31-37) Red Cell Distribution Width 17.2 % (11.5-14.5) H Platelet Count 216 x10^3/uL (140-400) Neutrophils (%) (Auto) 75 % (31-73) H Lymphocytes (%) (Auto) 13 % (24-48) L Monocytes (%) (Auto) 10 % (0-9) H Eosinophils (%) (Auto) 1 % (0-3) Basophils (%) (Auto) 1 % (0-3) Neutrophils # (Auto) 6.9 x10^3uL (1.8-7.7) Lymphocytes # (Auto) 1.2 x10^3/uL (1.0-4.8) Monocytes # (Auto) 0.9 x10^3/uL (0.0-1.1) Eosinophils # (Auto) 0.1 x10^3/uL (0.0-0.7) Basophils # (Auto) 0.1 x10^3/uL (0.0-0.2) Prothrombin Time 16.1 SEC (11.7-14.0) H Prothrombin Time INR 1.4 (0.8-1.1) H PTT 39 SEC (24-38) H Sodium Level 138 mmol/L (136-145) Potassium Level 4.2 mmol/L (3.5-5.1) Chloride Level 104 mmol/L (98-107) Carbon Dioxide Level 24 mmol/L (21-32) Anion Gap 10 (6-14) Blood Urea Nitrogen 23 mg/dL (7-20) H Creatinine 0.9 mg/dL (0.6-1.0) Estimated GFR (Cockcroft-Gault) 61.0 Glucose Level 108 mg/dL (70-99) H Calcium Level 9.9 mg/dL (8.5-10.1) Urine Collection Type Unknown Urine Color Yellow Urine Clarity Clear Urine pH 5.5 Urine Specific Arco 1.020 Urine Protein Negative mg/dL (NEG-TRACE) Urine Glucose (UA) Negative mg/dL (NEG) Urine Ketones (Stick) Negative mg/dL (NEG) Urine Blood Negative (NEG) Urine Nitrite Negative (NEG) Urine Bilirubin Negative (NEG) Urine Urobilinogen Dipstick 1.0 mg/dL (0.2 mg/dL) Urine Leukocyte Esterase Trace (NEG) Urine RBC 1-2 /HPF (0-2) Urine WBC Occ /HPF (0-4) Urine Squamous Epithelial Cells Few /LPF Urine Bacteria Few /HPF (0-FEW) Urine Mucus Marked /LPF Laboratory Tests 06/24/18 12:10 Laboratory Tests 06/24/18 12:10 EKG EKG [] Radiology/Procedures Radiology/Procedures [PROCEDURE: LUMBAR SPINE 2-3V Examination: 2 views of the lumbar spine HISTORY: History of low back pain COMPARISON: None available. FINDINGS: The lumbar vertebral bodies are maintained. There is mild grade 1 anterolisthesis of L4 on L5. The facets are well aligned. Moderate intervertebral disc height loss identified in the lumbar spine. IMPRESSION: Moderate degenerative changes lumbar spine with mild anterolisthesis of L4 on L5. ] Course & Med Decision Making Course & Med Decision Making Pertinent Labs and Imaging studies reviewed. (See chart for details) [2:40 PM: The patient's condition remains a stable and she is feeling significantly better at this time. Her pain has resolved. She is able to ambulate at her baseline, she has a walker at home although her states that she uses furniture to get around the house more than a walker. I will stop her tizanidine and give her prescription for low-dose Valium and Tylenol No. 3 instead. I discussed stopping tizanidine with the patient, sedation precautions of the medication with the patient and her , the need for close PCP follow-up,] and return precautions. Dragon Disclaimer Dragon Disclaimer This electronic medical record was generated, in whole or in part, using a voice recognition dictation system. Departure Departure Impression: Primary Impression: Low back pain Disposition: 01 HOME, SELF-CARE Condition: STABLE Referrals: CHAPIS DICK MD (PCP) Patient Instructions: Back Pain, Adult, Sciatica Additional Instructions: Ibuprofen 400 mg every 6 hours may help improve your symptoms. Applying a heating pad to the affected area may help improve your symptoms. The prescribed medications may cause drowsiness-use caution while taking. Scripts Diazepam (VALIUM) 2 Mg Tablet 2 MG PO QID PRN for back pain, #30 TAB Prov: FOZIA WEISS MD 06/24/18 Acetaminophen With Codeine (TYLENOL WITH CODEINE #3 TABLET) 1 Each Tablet 1 TAB PO PRN Q6HRS PRN for PAIN, #20 TAB Prov: FOZIA WEISS MD 06/24/18 FOZIA WEISS MD Jun 24, 2018 11:56
[2018-06-24] MEDS: diazePAM 5 MG TABLET PO ONE (12:18)
[2018-06-24] MEDS: MORPHINE SULFATE 4 MG/ML VIAL. IV ONE (12:20)
[2018-06-24 12:22] LABS: BASO # 0.1 x10^3/uL (0.0-0.2); BASO % 1 % (0-3); EOS # 0.1 x10^3/uL (0.0-0.7); EOS % 1 % (0-3); HEMATOCRIT 36.7 % (36.0-47.0); HEMOGLOBIN 12.1 g/dL (12.0-15.5); LYMPH # 1.2 x10^3/uL (1.0-4.8); LYMPH % 13 % (24-48); MEAN CORPUSCULAR HEMOGLOBIN 29 pg (25-35); MEAN CORPUSCULAR HGB CONC 33 g/dL (31-37); MEAN CORPUSCULAR VOLUME 88 fL (79-100); MONO # 0.9 x10^3/uL (0.0-1.1); MONO % 10 % (0-9); NEUT # 6.9 x10^3uL (1.8-7.7); NEUT % 75 % (31-73); PLATELET COUNT 216 x10^3/uL (140-400); RED BLOOD COUNT 4.18 x10^6/uL (3.50-5.40); RED CELL DISTRIBUTION WIDTH 17.2 % (11.5-14.5); WHITE BLOOD COUNT 9.2 x10^3/uL (4.0-11.0)
[2018-06-24 12:35] LABS: PROTHROMBIN TIME PATIENT 16.1 SEC (11.7-14.0)
[2018-06-24 12:37] LABS: CALCIUM 9.9 mg/dL (8.5-10.1); CREATININE 0.9 mg/dL (0.6-1.0); POTASSIUM 4.2 mmol/L (3.5-5.1)
--- NOTE | 2018-06-24 12:57 | RAD ---
Examination: 2 views of the lumbar spine HISTORY: History of low back pain COMPARISON: None available. FINDINGS: The lumbar vertebral bodies are maintained. There is mild grade 1 anterolisthesis of L4 on L5. The facets are well aligned. Moderate intervertebral disc height loss identified in the lumbar spine. IMPRESSION: Moderate degenerative changes lumbar spine with mild anterolisthesis of L4 on L5. Electronically signed by: David Flores MD (06/24/2018 12:53 PM) [facility]
[2018-06-24 13:53] LABS: BILIRUBIN,URINE NEGATIVE (NEG); CLARITY,URINE CLEAR; COLOR,URINE YELLOW; NITRITE,URINE NEGATIVE (NEG); PH,URINE 5.5; PROTEIN,URINE NEGATIVE (NEG-TRACE)
[2018-06-24 14:03] LABS: BACTERIA,URINE FEW /HPF (0-FEW); SQUAMOUS EPITHELIAL CELL,UR FEW /LPF; WBC,URINE OCC /HPF (0-4)
[2018-06-24 14:40] VITALS: BP 141/62
[2018-06-24] MEDS ORDERED: DIAZ2TAB PO (14:45)
[2018-06-24] MEDS ORDERED: ACET-704 PO (14:45)
[2018-06-29] MEDS ORDERED: MIRT15TA3 PO (22:33)
== END 2018-06-24 14:58 | disposition home or self-care (01) ==
LOC: ER 11:05
DX: M54.5 Low back pain (principal); M54.89 Other dorsalgia; M79.605 Pain in left leg; I10 Essential (primary) hypertension; I48.91 Unspecified atrial fibrillation; K21.9 Gastro-esophageal reflux disease without esophagitis; I25.10 Atherosclerotic heart disease of native coronary artery without angina pectoris; Z90.49 Acquired absence of other specified parts of digestive tract; Z95.1 Presence of aortocoronary bypass graft; Z88.1 Allergy status to other antibiotic agents; Z88.2 Allergy status to sulfonamides; Z88.5 Allergy status to narcotic agent; Z88.4 Allergy status to anesthetic agent; Z88.8 Allergy status to other drugs, medicaments and biological substances
CPT/HCPCS: 36415; 72100; 80048; 81001; 85025; 85610; 85730; 87086; 96374; 99284; J2270